=== PATIENT | male | born 1980 | race Caucasian/White ===

== ENCOUNTER 2018-07-29 23:40 | Emergency (ER) | payer MEDICAID ==
[~2018-07-29] VITALS: Ht 193 cm; Wt 86.7 kg
[2018-07-30] MEDS ORDERED: acetaminophen 325mg tablet PO ONE (00:20)
[2018-07-30] MEDS ORDERED: ibuprofen tablet 400 MG TABLET PO ONE (00:20)
--- NOTE | 2018-07-30 00:40 | NUR ---
post op shoe placed by johan heaton to right foot
[2018-07-30 00:41] VITALS: BP 107/64
== END 2018-07-30 00:43 | disposition home or self-care (01) ==
LOC: ER 23:41
DX: M79.675 Pain in left toe(s) (principal); W18.30XA Fall on same level, unspecified, initial encounter; Y93.42 Activity, yoga; Y92.89 Other specified places as the place of occurrence of the external cause; Y99.8 Other external cause status
CPT/HCPCS: 73630; 99283

== ENCOUNTER 2019-01-01 11:02 | Observation (INO) | payer MEDICAID ==
[~2019-01-01] VITALS: Ht 193 cm; Wt 94.0 kg
[2019-01-01 11:21] LABS: BASOPHILS # (AUTO) 0.1 X10'3 (0-0.2); BASOPHILS % (AUTO) 0.8 % (0-1); EOSINOPHILS % (AUTO) 0.6 % (0-6); HEMATOCRIT 40.2 % (42.0-52.0); HEMOGLOBIN 13.6 g/dl (14.0-17.9); LYMPHOCYTES # (AUTO) 1.5 X10'3 (1.1-4.8); LYMPHOCYTES % (AUTO) 21.4 % (21-51); MEAN CORPUSCULAR HEMOGLOBIN 29.3 PG (27.0-31.0); MEAN CORPUSCULAR HGB CONC 33.9 g/dL (33.0-36.5); MEAN CORPUSCULAR VOLUME 86.6 FL (78-98); MEAN PLATELET VOLUME 7.9 FL (7.4-10.4); MONOCYTES # (AUTO) 0.8 X10'3 (0-0.9); MONOCYTES % (AUTO) 10.8 % (2-12); NEUTROPHILS # (AUTO) 4.6 X10'3 (1.8-7.7); NEUTROPHILS % (AUTO) 66.4 % (42-75); PLATELET COUNT 249 X10'3 (140-440); RED BLOOD COUNT 4.65 X10'6 (4.70-6.10); RED CELL DISTRIBUTION WIDTH 13.8 % (11.5-14.5)
[2019-01-01 11:33] LABS: PARTIAL THROMBOPLASTIN TIME 26 SECONDS (22-32)
[2019-01-01 11:34] LABS: ALANINE AMINOTRANSFERASE 24 U/L (12-78); ALBUMIN/GLOBULIN RATIO 1.2 (1.1-1.5); ALKALINE PHOSPHATASE 79 IU/L (46-116); ANION GAP 12 (8-16); ASPARTATE AMINO TRANSFERASE 16 U/L (10-37); BILIRUBIN,TOTAL 0.4 MG/DL (0.1-1.0); BLOOD UREA NITROGEN 16 MG/DL (7-18); BUN/CREATININE RATIO 14.5 (5.4-32.0); CHLORIDE 104 MMOL/L (99-107); GLUCOSE 123 MG/DL (70-104); POTASSIUM 3.3 MMOL/L (3.5-5.1); SODIUM 138 MMOL/L (135-145); TOTAL PROTEIN 7.4 G/DL (6.4-8.2); eGFR 74 ML/MIN
[2019-01-01 11:39] LABS: TROPONIN I < 0.04 NG/ML (0.0-0.05)
[2019-01-01] MEDS ORDERED: BUPR200T PO (13:04)
[2019-01-01] MEDS ORDERED: LAMO200T PO (13:04)
[2019-01-01] MEDS ORDERED: magnesium 2GM in 50ml NS 50 ML IV PRN (13:10)
[2019-01-01] MEDS ORDERED: magnesium 4gm in 100ml NS 100 ML IV PRN (13:10)
[2019-01-01] MEDS ORDERED: magnesium hydroxide 30ml (MOM) UD suspension PO PRN (13:10)
[2019-01-01] MEDS ORDERED: mag hydrox/Alum hydrox/simeth 30ml oral suspension PO PRN (13:10)
[2019-01-01] MEDS ORDERED: potassium CL 10mEq/100ml bag 100 ML IV PRN ×2 (13:10)
[2019-01-01] MEDS ORDERED: ondansetron/PF 4mg/2ml inj IV PRN (13:10)
[2019-01-01] MEDS ORDERED: potassium Cl 20 mEq SR tablet PO PRN (13:10)
[2019-01-01] MEDS ORDERED: magnesium Cl slow-release 64mg tablet PO PRN (13:10)
[2019-01-01] MEDS ORDERED: acetaminophen 325mg tablet PO PRN ×2 (13:10)
[2019-01-01] MEDS ORDERED: aspirin 81mg tab.chew PO ONE (13:10)
[2019-01-01] MEDS: normal saline 1000ml 1,000 ML IV SCH ×2 (13:29→15:42)
--- NOTE | 2019-01-01 14:02 | NUR ---
Received report from Abraham GUPTA awaiting pt arrival to [facility] shortly
[2019-01-01 14:03] LABS: PHOSPHORUS 1.7 MG/DL (2.3-4.5)
[2019-01-01 16:01] VITALS: BP 108/55
[2019-01-01 16:33] LABS: MAGNESIUM 1.8 MG/DL (1.5-2.4)
[2019-01-01] MEDS: potassium Cl 20 mEq SR tablet PO PRN ×2 (17:25→21:21)
[2019-01-01] MEDS: Neutra Phos packet PO SCH ×2 (17:26→21:22)
[2019-01-01 18:00] VITALS: BP 106/55
[2019-01-01 18:01] LABS: CLARITY,URINE SLIGHTLY CLOUDY (Clear); COLOR,URINE YELLOW (Yellow); GLUCOSE, URINE NEGATIVE (Neg); KETONES,URINE NEGATIVE (Neg); LEUKOCYTE ESTERASE ,URINE NEGATIVE (Neg); NITRITES, URINE NEGATIVE (Neg); OCCULT BLOOD,URINE NEGATIVE (Neg); PH,URINE 5.5 (4.8-8.0); PROTEIN,URINE NEGATIVE (Neg); UROBILINOGEN,URINE 0.2 E.U/dL (0.2-1.0)
[2019-01-01 18:05] LABS: URINE AMPHETAMINE SCREEN NEGATIVE (Neg); URINE BARBITUATE SCREEN NEGATIVE (Neg); URINE BENZODIAZEPINES SCREEN NEGATIVE (Neg); URINE CANNABINOID SCREEN POSITIVE (Neg); URINE COCAINE SCREEN NEGATIVE (Neg); URINE METHADONE SCREEN NEGATIVE (Neg); URINE OPIATE SCREEN NEGATIVE (Neg); URINE PHENCYCLIDINE SCREEN NEGATIVE (Neg)
[2019-01-01 18:06] LABS: UA COLLECTION TYPE NON-SPECIFIED
[2019-01-01 18:07] LABS: MUCUS STRANDS MANY /LPF (Neg); SQUAMOUS EPITHELIAL CELL,UR FEW /LPF (FEW); TRANSITIONAL EPI CELLS,URINE FEW /HPF
[2019-01-01 18:08] LABS: BACTERIA,URINE NONE SEEN /HPF (Neg); RBC,URINE NONE SEEN /HPF (0-2); WBC,URINE 0-4 /HPF (0-4)
[2019-01-01 18:12] LABS: AMMONIUM BIURATE CRYSTALS 2+ /HPF (NEGATIVE)
--- NOTE | 2019-01-01 18:15 | NUR ---
Patient in room ORTHO 4021a. I have received report from CANDY SELLERS and had the opportunity to ask questions and assume patient care.
[2019-01-01] MEDS: lamoTRIgine 100mg tablet PO SCH (19:29)
[2019-01-01] MEDS: buPROPion SR 100mg tab PO SCH (19:29)
[2019-01-01] MEDS ORDERED: non-formulary drug (Lamotrigine 1 TAB) PO SCH (20:00)
[2019-01-01] MEDS ORDERED: BUPROPION HCL PO SCH (20:00)
[2019-01-01] MEDS ORDERED: Neutra Phos packet PO SCH (21:00)
[2019-01-01] MEDS ORDERED: temazepam 15mg capsule PO PRN (21:00)
[2019-01-01 21:51] VITALS: BP 112/45
[2019-01-02] MEDS: normal saline 1000ml 1,000 ML IV SCH (00:51)
[2019-01-02] MEDS: potassium Cl 20 mEq SR tablet PO PRN (00:52)
[2019-01-02 02:00] VITALS: BP 105/59
[2019-01-02 06:00] VITALS: BP 104/66
--- NOTE | 2019-01-02 06:19 | NUR ---
Problems reprioritized. Patient report given, questions answered & plan of care reviewed with CANDY SELLERS.
[2019-01-02 06:28] LABS: HEMATOCRIT 38.1 % (42.0-52.0); HEMOGLOBIN 12.5 g/dl (14.0-17.9); MEAN CORPUSCULAR HEMOGLOBIN 28.8 PG (27.0-31.0); MEAN CORPUSCULAR HGB CONC 32.8 g/dL (33.0-36.5); MEAN CORPUSCULAR VOLUME 87.7 FL (78-98); MEAN PLATELET VOLUME 8.2 FL (7.4-10.4); PLATELET COUNT 230 X10'3 (140-440); RED BLOOD COUNT 4.35 X10'6 (4.70-6.10); RED CELL DISTRIBUTION WIDTH 14.3 % (11.5-14.5); WHITE BLOOD COUNT 6.5 X10'3 (4.5-11.0)
[2019-01-02 06:51] LABS: ALBUMIN 3.4 G/DL (3.4-5.0); ANION GAP 9 (8-16); BLOOD UREA NITROGEN 14 MG/DL (7-18); BUN/CREATININE RATIO 15.9 (5.4-32.0); CALCIUM 8.1 MG/DL (8.5-10.1); CHLORIDE 109 MMOL/L (99-107); CHOL/HDL RATIO 5.8 (0.00-4.99); CHOLESTEROL 151 MG/DL (0-200); CREATININE 0.88 MG/DL (0.60-1.10); GLUCOSE 93 MG/DL (70-104); HDL CHOLESTEROL 26 MG/DL (35-60); LDL CHOLESTEROL 118 MG/DL (50-100); MAGNESIUM 1.9 MG/DL (1.5-2.4); POTASSIUM 4.6 MMOL/L (3.5-5.1); SODIUM 141 MMOL/L (135-145); TOTAL CARBON DIOXIDE 23.1 MMOL/L (24-32); TRIGLYCERIDES 65 MG/DL (20-135); eGFR > 90 ML/MIN
[2019-01-02] MEDS ORDERED: K and/or MAG REPLACEMENT MC SCH (08:00)
[2019-01-02] MEDS ORDERED: aspirin 81mg tablet.DR PO SCH (08:00)
[2019-01-02 08:12] LABS: PHOSPHORUS 3.6 MG/DL (2.3-4.5)
[2019-01-02] MEDS: lamoTRIgine 100mg tablet PO SCH (08:47)
[2019-01-02] MEDS: buPROPion SR 100mg tab PO SCH (08:47)
[2019-01-02] MEDS: Neutra Phos packet PO SCH (08:47)
--- NOTE | 2019-01-02 09:48 | NUR ---
Patient pushed call light and said his arms were shaking, they were a little shaky for a few seconds. He said his speech was slurred, it sounded somewhat slurred but resolved in a few seconds. Patient was totally alert. He pushed the call light 2 times over 5 minutes and had this episode.
--- NOTE | 2019-01-02 09:54 | NUR ---
Now patient is stating he is having chest pain on the left side dull and 5/5 pain. Doing EKG now. Vitals stable.
[2019-01-02 10:00] VITALS: BP 123/75
[2019-01-02] MEDS ORDERED: Neutra Phos packet PO PRN (12:35)
[2019-01-02] MEDS ORDERED: BUPR100T6 PO (13:08)
--- NOTE | 2019-01-02 13:42 | NUR ---
PAGER ID: [phone] MESSAGE: Estelle [phone] ben Leighann Kehinde VEGA he did annamaria down to 40's about 1130 or so. Currently 55-65 HR. Addendum: 01/03/19 at 1028 by Lisy Araujo RN Please disregard name in above note, wrong patient. The information about the pt's HR was correct per tele
== END 2019-01-02 14:45 | disposition home or self-care (01) ==
LOC: ER 11:02 → ORTHO 4S 13:51
PROVIDERS: ADMIT Family Medicine; ATTEND Family Medicine
DX: E87.6 Hypokalemia (principal); R00.1 Bradycardia, unspecified; E83.39 Other disorders of phosphorus metabolism; R11.0 Nausea; F31.9 Bipolar disorder, unspecified; F84.5 Asperger's syndrome; D64.9 Anemia, unspecified; E78.5 Hyperlipidemia, unspecified; F31.81 Bipolar II disorder; Z79.899 Other long term (current) drug therapy; Z86.73 Personal history of transient ischemic attack (TIA), and cerebral infarction without residual deficits
CPT/HCPCS: 36415; 70450; 70544; 70551; 71045; 80048; 80053; 80061; 80305; 81001; 82948; 83735; 84100; 84443; 84484; 85025; 85027; 85610; 85651; 85730; 87081; 93005; 93306; 93880; 97116; 97162; 97530; 99284; G0378; J7030

== ENCOUNTER 2019-01-03 20:53 | Emergency (ER) | payer MEDICAID ==
[~2019-01-03] VITALS: Ht 193 cm; Wt 91.4 kg
[~2019-01-03 20:53] MED LIST: BUPR100T6 PO
[2019-01-03 21:01] VITALS: BP 121/71
[2019-01-03] MEDS ORDERED: LORazepam 1 MG tablet PO ONE (21:15)
--- NOTE | 2019-01-03 21:36 | NUR ---
PT REPORTED THAT EARLIER TODAY HE FELT OFF, WAS STUTTERING, COULDN'T HOLD THINGS PROPERLY IN HIS HANDS. HE ASSOCIATES THESE SYMPTOMS WITH PREVIOUS SEIZURES, SO HE CAME TO THE ED.
== END 2019-01-03 21:49 | disposition home or self-care (01) ==
LOC: ER 20:53
DX: R56.9 Unspecified convulsions (principal); R41.0 Disorientation, unspecified; F80.81 Childhood onset fluency disorder; Z79.899 Other long term (current) drug therapy
CPT/HCPCS: 99284

== ENCOUNTER 2019-01-04 11:37 | Emergency (ER) | payer MEDICAID ==
[~2019-01-04] VITALS: Ht 193 cm; Wt 90.0 kg
[2019-01-04 12:13] VITALS: BP 119/72
[2019-01-04] MEDS ORDERED: LORazepam 1 MG tablet PO ONE (12:45)
[2019-01-04 14:28] LABS: URINE AMPHETAMINE SCREEN NEGATIVE (Neg); URINE BARBITUATE SCREEN NEGATIVE (Neg); URINE BENZODIAZEPINES SCREEN NEGATIVE (Neg); URINE CANNABINOID SCREEN POSITIVE (Neg); URINE COCAINE SCREEN NEGATIVE (Neg); URINE METHADONE SCREEN NEGATIVE (Neg); URINE OPIATE SCREEN NEGATIVE (Neg); URINE PHENCYCLIDINE SCREEN NEGATIVE (Neg)
== END 2019-01-04 14:25 | disposition home or self-care (01) ==
LOC: ER 11:38
DX: R25.1 Tremor, unspecified (principal); F41.9 Anxiety disorder, unspecified; F12.90 Cannabis use, unspecified, uncomplicated; Z88.6 Allergy status to analgesic agent; Z87.891 Personal history of nicotine dependence; Z79.899 Other long term (current) drug therapy
CPT/HCPCS: 80305; 82948; 93005; 99284

== ENCOUNTER 2019-01-04 21:32 | Emergency (ER) | payer MEDICAID ==
[~2019-01-04] VITALS: Ht 193 cm; Wt 91.4 kg
[2019-01-04 22:04] VITALS: BP 136/93
[2019-01-04] MEDS ORDERED: LORazepam 2 mg/ml vial IM ONE (22:25)
== END 2019-01-04 22:51 | disposition home or self-care (01) ==
LOC: ER 21:32
DX: F41.9 Anxiety disorder, unspecified (principal); F80.81 Childhood onset fluency disorder; F12.90 Cannabis use, unspecified, uncomplicated; Z86.69 Personal history of other diseases of the nervous system and sense organs; Z79.899 Other long term (current) drug therapy
CPT/HCPCS: 96372; 99284; J2060

== ENCOUNTER 2019-07-15 22:58 | Emergency (ER) | payer MEDICAID ==
[~2019-07-15] VITALS: Ht 190.5 cm; Wt 100.0 kg
--- NOTE | 2019-07-16 00:08 | NUR ---
PATIENT STATES " I DID NOT HAVE A SEIZURE BUT I FEEL LIKE I MIGHT BE GETTING ONE." DUE TO THIS SUBJECTIVE DATA THERE WAS NO SEIZURE ASSESSMENT TO ASSESS
[2019-07-16 00:10] VITALS: BP 98/62
== END 2019-07-16 00:49 | disposition home or self-care (01) ==
LOC: ER 22:59
DX: R56.9 Unspecified convulsions (principal); H53.8 Other visual disturbances; F12.90 Cannabis use, unspecified, uncomplicated; F10.99 Alcohol use, unspecified with unspecified alcohol-induced disorder; Z79.899 Other long term (current) drug therapy; Y90.9 Presence of alcohol in blood, level not specified
CPT/HCPCS: 99281

== ENCOUNTER 2019-08-06 21:07 | Emergency (ER) | payer MEDICAID ==
[~2019-08-06] VITALS: Ht 190.5 cm; Wt 89.0 kg
[2019-08-06 21:50] LABS: BASOPHILS % (AUTO) 0.6 % (0-1); EOSINOPHILS % (AUTO) 0.5 % (0-6); HEMATOCRIT 41.3 % (42.0-52.0); LYMPHOCYTES # (AUTO) 2.2 X10'3 (1.1-4.8); MEAN CORPUSCULAR HEMOGLOBIN 29.2 PG (27.0-31.0); MEAN CORPUSCULAR HGB CONC 33.9 g/dL (33.0-36.5); MEAN PLATELET VOLUME 7.9 FL (7.4-10.4); MONOCYTES # (AUTO) 0.6 X10'3 (0-0.9); MONOCYTES % (AUTO) 8.4 % (2-12); NEUTROPHILS % (AUTO) 58.5 % (42-75); PLATELET COUNT 296 X10'3 (140-440); RED CELL DISTRIBUTION WIDTH 13.7 % (11.5-14.5); WHITE BLOOD COUNT 6.8 X10'3 (4.5-11.0)
--- NOTE | 2019-08-06 21:50 | NUR ---
weak and no appetite. States he has lost 20 pounds in 3 weeks. No cough, lungs clear.
--- NOTE | 2019-08-06 21:54 | NUR ---
he said he has been told before his heart rate is slow, 70s. Informed him its 47
--- NOTE | 2019-08-06 21:58 | NUR ---
informed of HR, instructed to do orthostatics
[2019-08-06 21:59] LABS: ALANINE AMINOTRANSFERASE 22 U/L (12-78); ALBUMIN 4.4 G/DL (3.4-5.0); ALBUMIN/GLOBULIN RATIO 1.6 (1.1-1.5); ALKALINE PHOSPHATASE 77 IU/L (46-116); ANION GAP 9 (8-16); ASPARTATE AMINO TRANSFERASE 22 U/L (10-37); BILIRUBIN,TOTAL 0.3 MG/DL (0.1-1.0); BLOOD UREA NITROGEN 13 MG/DL (7-18); BUN/CREATININE RATIO 13.4 (5.4-32.0); CALCIUM 8.9 MG/DL (8.5-10.1); CHLORIDE 108 MMOL/L (99-107); CREATININE 0.97 MG/DL (0.60-1.10); GLUCOSE 89 MG/DL (70-104); POTASSIUM 3.5 MMOL/L (3.5-5.1); SODIUM 141 MMOL/L (135-145); TOTAL CARBON DIOXIDE 23.8 MMOL/L (24-32); TOTAL PROTEIN 7.1 G/DL (6.4-8.2); eGFR 86 ML/MIN
[2019-08-06] MEDS ORDERED: NAPR-56 PO (22:40)
[2019-08-06] MEDS ORDERED: naproxen 500mg tablet PO ONE (22:40)
[2019-08-06 23:07] VITALS: BP 115/88
--- NOTE | 2019-08-06 23:10 | NUR ---
VISITED WITH THE MD ABOUT HIS HEARTRATE BEING LOW. HE SAID HE IS FINE TO DISCHARGE.
== END 2019-08-06 23:10 | disposition home or self-care (01) ==
LOC: ER 21:07
DX: R07.89 Other chest pain (principal); R06.02 Shortness of breath; R53.1 Weakness; R51 Headache; F12.90 Cannabis use, unspecified, uncomplicated; Z86.69 Personal history of other diseases of the nervous system and sense organs; Z72.89 Other problems related to lifestyle; Z79.899 Other long term (current) drug therapy; Z87.891 Personal history of nicotine dependence
CPT/HCPCS: 36415; 71045; 80053; 84484; 85025; 93005; 99285

== ENCOUNTER 2019-10-23 15:17 | Emergency (ER) | payer MEDICAID ==
[~2019-10-23] VITALS: Ht 190.5 cm; Wt 95.0 kg
[2019-10-23 17:23] VITALS: BP 115/70
== END 2019-10-23 17:26 | disposition home or self-care (01) ==
LOC: ER 15:17
DX: R53.81 Other malaise (principal); R06.02 Shortness of breath; R07.89 Other chest pain; R42 Dizziness and giddiness; R53.83 Other fatigue; F41.9 Anxiety disorder, unspecified; F31.9 Bipolar disorder, unspecified; F12.90 Cannabis use, unspecified, uncomplicated; Z87.891 Personal history of nicotine dependence; Z86.69 Personal history of other diseases of the nervous system and sense organs; Z79.899 Other long term (current) drug therapy
CPT/HCPCS: 93005; 99283

== ENCOUNTER 2019-10-31 11:57 | Emergency (ER) | payer MEDICAID ==
[~2019-10-31] VITALS: Ht 190.5 cm; Wt 94.5 kg
[2019-10-31 13:43] LABS: BASOPHILS % (AUTO) 0.3 % (0-1); EOSINOPHILS % (AUTO) 0.2 % (0-6); HEMATOCRIT 41.6 % (42.0-52.0); LYMPHOCYTES # (AUTO) 1.2 X10'3 (1.1-4.8); LYMPHOCYTES % (AUTO) 12.4 % (21-51); MEAN CORPUSCULAR HEMOGLOBIN 29.5 PG (27.0-31.0); MEAN CORPUSCULAR HGB CONC 33.6 g/dL (33.0-36.5); MEAN CORPUSCULAR VOLUME 87.7 FL (78-98); MEAN PLATELET VOLUME 7.7 FL (7.4-10.4); MONOCYTES # (AUTO) 0.7 X10'3 (0-0.9); MONOCYTES % (AUTO) 6.9 % (2-12); NEUTROPHILS # (AUTO) 8.1 X10'3 (1.8-7.7); NEUTROPHILS % (AUTO) 80.2 % (42-75); PLATELET COUNT 294 X10'3 (140-440); RED BLOOD COUNT 4.74 X10'6 (4.70-6.10); RED CELL DISTRIBUTION WIDTH 14.1 % (11.5-14.5)
[2019-10-31 13:58] LABS: ALANINE AMINOTRANSFERASE 22 U/L (12-78); ALBUMIN/GLOBULIN RATIO 1.2 (1.1-1.5); ALKALINE PHOSPHATASE 78 IU/L (46-116); ANION GAP 4 (8-16); ASPARTATE AMINO TRANSFERASE 16 U/L (10-37); BILIRUBIN,TOTAL 0.4 MG/DL (0.1-1.0); BLOOD UREA NITROGEN 10 MG/DL (7-18); BUN/CREATININE RATIO 10.3 (5.4-32.0); CALCIUM 9.1 MG/DL (8.5-10.1); CHLORIDE 104 MMOL/L (99-107); CREATININE 0.97 MG/DL (0.60-1.10); GLUCOSE 100 MG/DL (70-104); POTASSIUM 3.4 MMOL/L (3.5-5.1); SODIUM 139 MMOL/L (135-145); TOTAL CARBON DIOXIDE 30.8 MMOL/L (24-32); TOTAL PROTEIN 7.4 G/DL (6.4-8.2); eGFR 85 ML/MIN
[2019-10-31 14:01] LABS: LIPASE 116 U/L (73-393)
[2019-10-31 14:13] VITALS: BP 137/84
== END 2019-10-31 14:15 | disposition home or self-care (01) ==
LOC: ER 11:57
DX: R10.13 Epigastric pain (principal); F41.9 Anxiety disorder, unspecified; R11.2 Nausea with vomiting, unspecified; F31.9 Bipolar disorder, unspecified; F17.200 Nicotine dependence, unspecified, uncomplicated; F12.90 Cannabis use, unspecified, uncomplicated; Z72.89 Other problems related to lifestyle; Z86.69 Personal history of other diseases of the nervous system and sense organs; Z79.899 Other long term (current) drug therapy
CPT/HCPCS: 36415; 80053; 83690; 84484; 85025; 93005; 99285

== ENCOUNTER 2020-12-21 18:47 | Emergency (ER) | payer MEDICAID ==
[~2020-12-21] VITALS: Ht 190.5 cm; Wt 124.6 kg
[2020-12-21] MEDS ORDERED: AMOX500C2 PO (20:40)
--- NOTE | 2020-12-21 20:54 | NUR ---
Seen by provider, disch home with Rx. No distress.
[2020-12-21 20:55] VITALS: BP 138/78
== END 2020-12-21 20:57 | disposition home or self-care (01) ==
LOC: ER 18:48
DX: H66.91 Otitis media, unspecified, right ear (principal); H92.01 Otalgia, right ear; F41.9 Anxiety disorder, unspecified; F31.9 Bipolar disorder, unspecified; F12.90 Cannabis use, unspecified, uncomplicated; Z72.89 Other problems related to lifestyle; Z86.69 Personal history of other diseases of the nervous system and sense organs; Z79.2 Long term (current) use of antibiotics; Z79.899 Other long term (current) drug therapy
CPT/HCPCS: 99283

== ENCOUNTER 2020-12-24 11:11 | Emergency (ER) | payer MEDICAID ==
[~2020-12-24] VITALS: Ht 190.5 cm; Wt 116.4 kg
[~2020-12-24 11:11] MED LIST changes: +AMOX500C2 PO
[2020-12-24 11:48] LABS: BASOPHILS % (AUTO) 0.4 % (0-1); EOSINOPHILS % (AUTO) 0.4 % (0-6); HEMATOCRIT 41.4 % (42.0-52.0); LYMPHOCYTES # (AUTO) 1.7 X10'3 (1.1-4.8); LYMPHOCYTES % (AUTO) 17.5 % (21-51); MEAN CORPUSCULAR HEMOGLOBIN 29.3 PG (27.0-31.0); MEAN CORPUSCULAR HGB CONC 33.9 g/dL (33.0-36.5); MEAN CORPUSCULAR VOLUME 86.7 FL (78-98); MEAN PLATELET VOLUME 7.4 FL (7.4-10.4); MONOCYTES # (AUTO) 0.7 X10'3 (0-0.9); MONOCYTES % (AUTO) 7.2 % (2-12); NEUTROPHILS # (AUTO) 7.4 X10'3 (1.8-7.7); NEUTROPHILS % (AUTO) 74.5 % (42-75); PLATELET COUNT 371 X10'3 (140-440); RED BLOOD COUNT 4.78 X10'6 (4.70-6.10); RED CELL DISTRIBUTION WIDTH 14.4 % (11.5-14.5); WHITE BLOOD COUNT 9.9 X10'3 (4.5-11.0)
[2020-12-24 11:57] LABS: ALANINE AMINOTRANSFERASE 31 U/L (12-78); ALBUMIN 3.9 G/DL (3.4-5.0); ALKALINE PHOSPHATASE 103 IU/L (46-116); ANION GAP 9 (8-16); ASPARTATE AMINO TRANSFERASE 24 U/L (10-37); BILIRUBIN,TOTAL 0.2 MG/DL (0.1-1.0); BLOOD UREA NITROGEN 21 MG/DL (7-18); BUN/CREATININE RATIO 25.6 (5.4-32.0); CALCIUM 8.8 MG/DL (8.5-10.1); CHLORIDE 103 MMOL/L (99-107); CREATININE 0.82 MG/DL (0.60-1.10); GLUCOSE 115 MG/DL (70-104); POTASSIUM 3.6 MMOL/L (3.5-5.1); SODIUM 138 MMOL/L (135-145); TOTAL CARBON DIOXIDE 25.7 MMOL/L (24-32); TOTAL PROTEIN 7.8 G/DL (6.4-8.2); eGFR > 90 ML/MIN
--- NOTE | 2020-12-24 13:55 | NUR ---
awaiting for 3 hour troponin.
[2020-12-24 15:31] VITALS: BP 138/72
== END 2020-12-24 15:35 | disposition home or self-care (01) ==
LOC: ER 11:12
DX: R07.81 Pleurodynia (principal); F41.9 Anxiety disorder, unspecified; F20.9 Schizophrenia, unspecified; F12.10 Cannabis abuse, uncomplicated
CPT/HCPCS: 36415; 71045; 80053; 83880; 84484; 85025; 93005; 99285

== ENCOUNTER 2021-12-28 08:15 | Emergency (ER) | payer MEDICAID ==
[~2021-12-28] VITALS: Ht 190.5 cm; Wt 112.0 kg
[~2021-12-28 08:15] MED LIST changes: -AMOX500C2 PO; +BUPR-113 PO; -BUPR100T6 PO
[2021-12-28 08:53] VITALS: BP 133/97
[2021-12-28] MEDS ORDERED: LIDOcaine 1% 30ml preserv. free vial IJ STA (11:32)
== END 2021-12-28 13:33 | disposition home or self-care (01) ==
LOC: ER 08:15
DX: S01.81XA Laceration without foreign body of other part of head, initial encounter (principal); F31.9 Bipolar disorder, unspecified; F12.90 Cannabis use, unspecified, uncomplicated; Z87.891 Personal history of nicotine dependence; W06.XXXA Fall from bed, initial encounter; Y93.89 Activity, other specified; Y92.89 Other specified places as the place of occurrence of the external cause; Y99.8 Other external cause status
CPT/HCPCS: 12011; 99282; A6449

== ENCOUNTER 2022-05-18 17:32 | Inpatient (IN) | payer MEDICAID ==
[~2022-05-18] VITALS: Ht 190.5 cm; Wt 118.2 kg
[2022-05-18 18:42] LABS: BASOPHILS % (AUTO) 0.1 % (0-1); EOSINOPHILS % (AUTO) 0 % (0-6); HEMATOCRIT 45.4 % (42.0-52.0); HEMOGLOBIN 14.8 g/dl (14.0-17.9); LYMPHOCYTES # (AUTO) 0.6 X10'3 (1.1-4.8); LYMPHOCYTES % (AUTO) 3.1 % (21-51); MEAN CORPUSCULAR HGB CONC 32.7 g/dL (33.0-36.5); MEAN CORPUSCULAR VOLUME 85.8 FL (78-98); MEAN PLATELET VOLUME 7.4 FL (7.4-10.4); MONOCYTES # (AUTO) 0.7 X10'3 (0-0.9); MONOCYTES % (AUTO) 3.3 % (2-12); NEUTROPHILS # (AUTO) 18.6 X10'3 (1.8-7.7); NEUTROPHILS % (AUTO) 93.5 % (42-75); PLATELET COUNT 423 X10'3 (140-440); RED BLOOD COUNT 5.29 X10'6 (4.70-6.10); RED CELL DISTRIBUTION WIDTH 15.3 % (11.5-14.5); WHITE BLOOD COUNT 19.9 X10'3 (4.5-11.0)
[2022-05-18 18:58] LABS: ALANINE AMINOTRANSFERASE 348 U/L (12-78); ALBUMIN 4.4 G/DL (3.4-5.0); ALBUMIN/GLOBULIN RATIO 1.2 (1.1-1.5); ALKALINE PHOSPHATASE 242 IU/L (46-116); ANION GAP 12 (8-16); ASPARTATE AMINO TRANSFERASE 247 U/L (10-37); BILIRUBIN,TOTAL 3.3 MG/DL (0.1-1.0); BLOOD UREA NITROGEN 9 MG/DL (7-18); BUN/CREATININE RATIO 10.6 (5.4-32.0); CALCIUM 9.2 MG/DL (8.5-10.1); CHLORIDE 100 MMOL/L (99-107); CREATININE 0.85 MG/DL (0.60-1.10); GLUCOSE 178 MG/DL (70-104); POTASSIUM 3.9 MMOL/L (3.5-5.1); SODIUM 136 MMOL/L (135-145); TOTAL CARBON DIOXIDE 24.3 MMOL/L (24-32); eGFR > 90 ML/MIN
[2022-05-18 19:41] LABS: LIPASE 14464 U/L (73-393)
[2022-05-18 19:43] LABS: CLARITY,URINE CLEAR (Clear); GLUCOSE, URINE 100 mg/dl (Neg); KETONES,URINE 15 mg/dl (Neg); LEUKOCYTE ESTERASE ,URINE NEGATIVE (Neg); NITRITES, URINE NEGATIVE (Neg); OCCULT BLOOD,URINE TRACE-INTACT (Neg); PROTEIN,URINE 30 mg/dl (Neg)
[2022-05-18 19:55] LABS: COLOR,URINE AMBER (Yellow); UA COLLECTION TYPE CLN CATCH MIDSTREAM
[2022-05-18 20:11] LABS: RBC,URINE 0-2 /HPF (0-2); WBC,URINE 0-4 /HPF (0-4)
[2022-05-18 20:12] LABS: BACTERIA,URINE NONE SEEN /HPF (Neg); HYALINE CASTS 0-3 /LPF (NEGATIVE); MUCUS STRANDS MANY /LPF (Neg); SQUAMOUS EPITHELIAL CELL,UR FEW /LPF (FEW)
[2022-05-18] MEDS ORDERED: ondansetron/PF 4mg/2ml inj IV ONE (20:45)
[2022-05-18] MEDS ORDERED: normal saline 1000ML IV soln IVB ONE (20:45)
[2022-05-18] MEDS ORDERED: temazepam 15mg capsule PO PRN (21:00)
[2022-05-18] MEDS ORDERED: piperacillin/tazo 3.375gm/50ml 50 ML IV ONE (21:50)
[2022-05-18] MEDS: morphine 4 MG/ML inj SYRINge IV PRN ×2 (21:54→22:13)
[2022-05-18] MEDS ORDERED: metoclopramide 5 mg/ml inj IV PRN (22:15)
[2022-05-18] MEDS ORDERED: potassium Cl 20 mEq SR tablet PO PRN ×2 (22:15)
[2022-05-18] MEDS: normal saline 1000ml 1,000 ML IV SCH (22:15)
[2022-05-18] MEDS ORDERED: mag hydrox/Alum hydrox/simeth 30ml oral suspension PO PRN (22:15)
[2022-05-18] MEDS ORDERED: HYDROcodone/acetaminophen 5mg/325mg tablet PO PRN (22:15)
[2022-05-18] MEDS ORDERED: potassium Cl 40MEQ/1/2NS 520ml 520 ML IV PRN (22:15)
[2022-05-18] MEDS ORDERED: magnesium 4gm in 100ml NS 100 ML IV PRN (22:15)
[2022-05-18] MEDS ORDERED: ondansetron/PF 4mg/2ml inj IV PRN (22:15)
[2022-05-18] MEDS ORDERED: acetaminophen 325mg tablet PO PRN (22:15)
[2022-05-18] MEDS ORDERED: morphine 2 MG/ML inj. syringe IV PRN (22:15)
[2022-05-18] MEDS ORDERED: magnesium Cl slow-release 64mg tablet PO PRN (22:15)
[2022-05-18] MEDS ORDERED: iohexol 300mg/ml 100ml inj. ONE (22:41)
[2022-05-18 23:57] LABS: URINE AMPHETAMINE SCREEN NEGATIVE (Neg); URINE BARBITUATE SCREEN NEGATIVE (Neg); URINE BENZODIAZEPINES SCREEN NEGATIVE (Neg); URINE CANNABINOID SCREEN NEGATIVE (Neg); URINE COCAINE SCREEN NEGATIVE (Neg); URINE METHADONE SCREEN NEGATIVE (Neg); URINE OPIATE SCREEN NEGATIVE (Neg); URINE PHENCYCLIDINE SCREEN NEGATIVE (Neg)
[2022-05-19] MEDS: atenolol 25mg tablet PO SCH ×2 (00:44→08:47)
[2022-05-19] MEDS: morphine 2 MG/ML inj. syringe IV PRN ×5 (00:47→22:04)
[2022-05-19 02:40] VITALS: BP 172/114
--- NOTE | 2022-05-19 02:45 | NUR ---
pt in room 360 Brando Mabry admitted pt to room and darting done. pt oriented to room and routine. Addendum: 05/19/22 at 0308 by Carolina Nixon RN Amended: Links added.
[2022-05-19] MEDS ORDERED: FLU VACC QS2022-23(6MOS UP)/PF 60 MCG/0.5 ML SYRINGE IMVAC ONE ×2 (02:55→08:00)
[2022-05-19 02:56] VITALS: BP 157/96
[2022-05-19] MEDS: HYDROcodone/acetaminophen 10/325mg tab PO PRN ×3 (03:04→19:38)
--- NOTE | 2022-05-19 03:05 | NUR ---
Dundas given for pain, morphine not due at this time. pt very painful. notified in Er not addition medications ordered. Morphine was not increased and per report Dr. bills declined to order dilauded. Addendum: 05/19/22 at 0307 by Carolina Nixon RN Amended: Links added.
--- NOTE | 2022-05-19 03:13 | NUR ---
pt does not want vaccine at this time d/t pain. Addendum: 05/19/22 at 0313 by Carolina Nixon RN Amended: Links added.
--- NOTE | 2022-05-19 03:30 | NUR ---
amb to bathroom Addendum: 05/19/22 at 0445 by Carolina Nixon RN Amended: Links added.
--- NOTE | 2022-05-19 04:30 | NUR ---
sleeping rr wnl no s&s of pain. Addendum: 05/19/22 at 0445 by Carolina Nixon RN Amended: Links added.
[2022-05-19] MEDS: piperacillin/tazo 3.375gm/50ml 50 ML IV SCH ×3 (05:37→21:33)
--- NOTE | 2022-05-19 06:29 | NUR ---
Problems reprioritized. Patient report given, questions answered & plan of care reviewed with CANDY Manuel. Addendum: 05/19/22 at 0630 by Carolina Nixon RN Amended: Links added.
[2022-05-19 06:30] LABS: BASOPHILS % (AUTO) 0.1 % (0-1); EOSINOPHILS % (AUTO) 0 % (0-6); HEMATOCRIT 44.3 % (42.0-52.0); HEMOGLOBIN 14.9 g/dl (14.0-17.9); LYMPHOCYTES # (AUTO) 0.9 X10'3 (1.1-4.8); MEAN CORPUSCULAR HEMOGLOBIN 28.7 PG (27.0-31.0); MEAN CORPUSCULAR HGB CONC 33.6 g/dL (33.0-36.5); MEAN CORPUSCULAR VOLUME 85.3 FL (78-98); MONOCYTES # (AUTO) 1.3 X10'3 (0-0.9); MONOCYTES % (AUTO) 5.6 % (2-12); NEUTROPHILS # (AUTO) 20.7 X10'3 (1.8-7.7); NEUTROPHILS % (AUTO) 90.3 % (42-75); PLATELET COUNT 398 X10'3 (140-440); RED BLOOD COUNT 5.19 X10'6 (4.70-6.10); WHITE BLOOD COUNT 22.9 X10'3 (4.5-11.0)
[2022-05-19 06:47] VITALS: BP 165/108
--- NOTE | 2022-05-19 07:02 | NUR ---
Patient in room DORIAN 360. I have received report from Lou GUPTA and had the opportunity to ask questions and assume patient care.
[2022-05-19 07:21] LABS: ALANINE AMINOTRANSFERASE 323 U/L (12-78); ALBUMIN 3.7 G/DL (3.4-5.0); ALBUMIN/GLOBULIN RATIO 1.1 (1.1-1.5); ALKALINE PHOSPHATASE 266 IU/L (46-116); ASPARTATE AMINO TRANSFERASE 245 U/L (10-37); BILIRUBIN,TOTAL 3.3 MG/DL (0.1-1.0); BLOOD UREA NITROGEN 10 MG/DL (7-18); BUN/CREATININE RATIO 13.7 (5.4-32.0); CALCIUM 8.6 MG/DL (8.5-10.1); CREATININE 0.73 MG/DL (0.60-1.10); GLUCOSE 115 MG/DL (70-104); PLATELET ESTIMATE NORMAL; TOTAL CARBON DIOXIDE 24.5 MMOL/L (24-32); TOTAL CELLS COUNTED 100; TOTAL PROTEIN 7.1 G/DL (6.4-8.2); eGFR > 90 ML/MIN
[2022-05-19 07:22] LABS: ANISOCYTOSIS 1+; MICROCYTOSIS 1+
[2022-05-19 07:47] LABS: ANION GAP 13 (8-16); CHLORIDE 101 MMOL/L (99-107); POTASSIUM 4.1 MMOL/L (3.5-5.1); SODIUM 138 MMOL/L (135-145)
[2022-05-19 07:51] LABS: LIPASE 6955 U/L (73-393)
[2022-05-19] MEDS: heparin, porcine 5000 units/ml vial SQ SCH ×2 (08:00→19:38)
[2022-05-19] MEDS: K and/or MAG REPLACEMENT MC SCH ×2 (08:00→18:58)
[2022-05-19] MEDS: pantoprazole 40mg Tablet.DR PO SCH (08:46)
[2022-05-19] MEDS ORDERED: OMEP20CA16 PO (09:11)
[2022-05-19] MEDS ORDERED: LAMO150T6 PO (09:11)
[2022-05-19] MEDS ORDERED: CLON1TAB13 PO (09:11)
--- NOTE | 2022-05-19 09:50 | NUR ---
Paged placed to signal technician re: MRCP ordered. Rtn call pending.
[2022-05-19 11:31] VITALS: BP 116/74
[2022-05-19] MEDS: normal saline 1000ml 1,000 ML IV SCH ×2 (11:49→18:15)
[2022-05-19] MEDS ORDERED: clonazePAM 1mg tablet PO PRN (12:20)
[2022-05-19] MEDS: lamoTRIgine 25mg tablet PO SCH (13:24)
[2022-05-19] MEDS: lamoTRIgine 100mg tablet PO SCH (13:24)
[2022-05-19 18:00] VITALS: BP 107/85
--- NOTE | 2022-05-19 18:28 | NUR ---
Problems reprioritized. Patient report given, questions answered & plan of care reviewed with Clotilde GUPTA.
--- NOTE | 2022-05-19 19:43 | NUR ---
DR. BELL ORDERED HIDA IN AM. HE TALKED TO PT OKAY FOR SOME ICE CHIPS AND SIPS.
[2022-05-19 22:00] VITALS: BP 103/67
[2022-05-20] MEDS: normal saline 1000ml 1,000 ML IV SCH ×4 (00:59→22:23)
[2022-05-20] MEDS: HYDROcodone/acetaminophen 10/325mg tab PO PRN ×4 (01:58→22:18)
[2022-05-20] MEDS: piperacillin/tazo 3.375gm/50ml 50 ML IV SCH ×3 (05:26→22:18)
[2022-05-20 05:57] LABS: BASOPHILS # (AUTO) 0.1 X10'3 (0-0.2); BASOPHILS % (AUTO) 0.2 % (0-1); EOSINOPHILS % (AUTO) 0 % (0-6); HEMATOCRIT 42.8 % (42.0-52.0); HEMOGLOBIN 14.3 g/dl (14.0-17.9); LYMPHOCYTES # (AUTO) 1.2 X10'3 (1.1-4.8); LYMPHOCYTES % (AUTO) 4.1 % (21-51); MEAN CORPUSCULAR HEMOGLOBIN 28.6 PG (27.0-31.0); MEAN CORPUSCULAR HGB CONC 33.4 g/dL (33.0-36.5); MEAN CORPUSCULAR VOLUME 85.6 FL (78-98); MEAN PLATELET VOLUME 7.8 FL (7.4-10.4); MONOCYTES # (AUTO) 1.6 X10'3 (0-0.9); MONOCYTES % (AUTO) 5.3 % (2-12); NEUTROPHILS % (AUTO) 90.4 % (42-75); PLATELET COUNT 322 X10'3 (140-440); RED CELL DISTRIBUTION WIDTH 15.6 % (11.5-14.5)
[2022-05-20 06:02] LABS: WHITE BLOOD COUNT 29.9 X10'3 (4.5-11.0)
--- NOTE | 2022-05-20 06:15 | NUR ---
Problems reprioritized. Patient report given, questions answered & plan of care reviewed with CANDY Manuel.
--- NOTE | 2022-05-20 06:25 | NUR ---
PAGER ID: [phone] MESSAGE: Kaleb surg [phone] re:360a Radha Bass critical WBC of 29.9 on Zosyn only.
[2022-05-20 06:37] LABS: ALANINE AMINOTRANSFERASE 203 U/L (12-78); ALBUMIN 2.9 G/DL (3.4-5.0); ALBUMIN/GLOBULIN RATIO 0.8 (1.1-1.5); ALKALINE PHOSPHATASE 237 IU/L (46-116); ASPARTATE AMINO TRANSFERASE 96 U/L (10-37); BILIRUBIN,TOTAL 2.7 MG/DL (0.1-1.0); BLOOD UREA NITROGEN 15 MG/DL (7-18); BUN/CREATININE RATIO 16.7 (5.4-32.0); CALCIUM 7.5 MG/DL (8.5-10.1); GLUCOSE 114 MG/DL (70-104); TOTAL CARBON DIOXIDE 26.6 MMOL/L (24-32); TOTAL PROTEIN 6.5 G/DL (6.4-8.2); eGFR > 90 ML/MIN
[2022-05-20 06:42] LABS: TOTAL CELLS COUNTED 100
[2022-05-20 06:43] LABS: ANISOCYTOSIS 1+; MICROCYTOSIS 1+; PLATELET ESTIMATE NORMAL
--- NOTE | 2022-05-20 06:50 | NUR ---
Patient in room DORIAN 360. I have received report from Clotilde GUPTA and had the opportunity to ask questions and assume patient care.
[2022-05-20 07:14] VITALS: BP 110/65
[2022-05-20 07:31] LABS: ANION GAP 9 (8-16); CHLORIDE 101 MMOL/L (99-107); POTASSIUM 3.9 MMOL/L (3.5-5.1); SODIUM 137 MMOL/L (135-145)
--- NOTE | 2022-05-20 07:42 | NUR ---
PAGER ID: [phone] MESSAGE: Kaleb Surg Re: 360a Radha Nina Nuclear Med is not able to get dose for HIDA scan today. Can I start treating with pain medications again. Thanks Kaleb.
[2022-05-20] MEDS ORDERED: non-formulary drug (Omeprazole 1 CAP) PO SCH (08:00)
[2022-05-20] MEDS: K and/or MAG REPLACEMENT MC SCH ×2 (08:00→20:00)
[2022-05-20] MEDS: heparin, porcine 5000 units/ml vial SQ SCH ×2 (08:00→20:21)
[2022-05-20] MEDS: morphine 2 MG/ML inj. syringe IV PRN ×3 (09:10→20:21)
[2022-05-20 09:30] LABS: LIPASE 2399 U/L (73-393)
[2022-05-20] MEDS ORDERED: morphine 2 MG/ML inj. syringe IV ONE (10:05)
[2022-05-20] MEDS: vancomycin/NS 1 GM ADD-VANTAGE 250 ML IV SCH ×2 (10:28→17:27)
[2022-05-20] MEDS ORDERED: iohexol 300mg/ml 100ml inj. ONE (10:48)
[2022-05-20 11:10] VITALS: BP 121/78
[2022-05-20] MEDS: lamoTRIgine 100mg tablet PO SCH (11:50)
[2022-05-20] MEDS: lamoTRIgine 25mg tablet PO SCH (11:50)
[2022-05-20] MEDS: pantoprazole 40mg Tablet.DR PO SCH (11:51)
[2022-05-20] MEDS: buPROPion SR 100mg tab PO SCH (11:51)
[2022-05-20] MEDS: atenolol 25mg tablet PO SCH (11:54)
--- NOTE | 2022-05-20 14:30 | NUR ---
relieving RN for break, pt is lying on bed, eating ice chips, zina well no n/v
[2022-05-20] MEDS ORDERED: FLU VACC QS2022-23(6MOS UP)/PF 60 MCG/0.5 ML SYRINGE IMVAC ONE (15:00)
[2022-05-20 18:00] VITALS: BP 119/63
--- NOTE | 2022-05-20 19:08 | NUR ---
Problems reprioritized. Patient report given, questions answered & plan of care reviewed with Patty GUPTA.
[2022-05-20 20:19] VITALS: BP 149/100
[2022-05-20 22:00] VITALS: BP 140/79
[2022-05-21] VITALS (18 sets, daily range): BP systolic 115–154; BP diastolic 63–95
[2022-05-21] MEDS: morphine 2 MG/ML inj. syringe IV PRN ×3 (00:18→16:02)
[2022-05-21] MEDS: HYDROcodone/acetaminophen 10/325mg tab PO PRN ×3 (02:32→17:50)
[2022-05-21] MEDS: vancomycin/NS 1 GM ADD-VANTAGE 250 ML IV SCH ×2 (02:33→08:09)
--- NOTE | 2022-05-21 06:35 | NUR ---
Problems reprioritized. Patient report given, questions answered & plan of care reviewed with CANDY DÍAZ.
[2022-05-21] MEDS ORDERED: VANCOMYCIN LEVEL IV ONE (07:30)
--- NOTE | 2022-05-21 07:33 | NUR ---
Patient in room DORIAN 360. I have received report from STEFFI GUPTA and had the opportunity to ask questions and assume patient care.
[2022-05-21] MEDS: heparin, porcine 5000 units/ml vial SQ SCH ×2 (08:00→23:28)
[2022-05-21] MEDS: K and/or MAG REPLACEMENT MC SCH ×2 (08:00→20:00)
[2022-05-21] MEDS: normal saline 1000ml 1,000 ML IV SCH ×3 (08:16→22:12)
[2022-05-21] MEDS: pantoprazole 40mg Tablet.DR PO SCH (08:18)
[2022-05-21] MEDS: lamoTRIgine 100mg tablet PO SCH (08:19)
[2022-05-21] MEDS: lamoTRIgine 25mg tablet PO SCH (08:20)
[2022-05-21] MEDS: atenolol 25mg tablet PO SCH (08:21)
[2022-05-21] MEDS: buPROPion SR 100mg tab PO SCH (08:21)
[2022-05-21] MEDS: acetaminophen 325mg tablet PO PRN ×3 (08:23→21:25)
[2022-05-21 09:01] LABS: BASOPHILS % (AUTO) 0 % (0-1); EOSINOPHILS % (AUTO) 0.1 % (0-6); HEMATOCRIT 35.3 % (42.0-52.0); HEMOGLOBIN 11.6 g/dl (14.0-17.9); LYMPHOCYTES % (AUTO) 4.7 % (21-51); MEAN CORPUSCULAR HEMOGLOBIN 28.2 PG (27.0-31.0); MEAN CORPUSCULAR HGB CONC 32.9 g/dL (33.0-36.5); MEAN CORPUSCULAR VOLUME 85.6 FL (78-98); MEAN PLATELET VOLUME 7.8 FL (7.4-10.4); MONOCYTES # (AUTO) 1.3 X10'3 (0-0.9); MONOCYTES % (AUTO) 5.9 % (2-12); NEUTROPHILS # (AUTO) 19.1 X10'3 (1.8-7.7); NEUTROPHILS % (AUTO) 89.3 % (42-75); PLATELET COUNT 277 X10'3 (140-440); RED BLOOD COUNT 4.13 X10'6 (4.70-6.10); RED CELL DISTRIBUTION WIDTH 15.6 % (11.5-14.5); WHITE BLOOD COUNT 21.4 X10'3 (4.5-11.0)
[2022-05-21 09:15] LABS: ALANINE AMINOTRANSFERASE 103 U/L (12-78); ALBUMIN 2.4 G/DL (3.4-5.0); ALBUMIN/GLOBULIN RATIO 0.6 (1.1-1.5); ALKALINE PHOSPHATASE 134 IU/L (46-116); ANION GAP 12 (8-16); ASPARTATE AMINO TRANSFERASE 33 U/L (10-37); BILIRUBIN,TOTAL 1.1 MG/DL (0.1-1.0); BLOOD UREA NITROGEN 12 MG/DL (7-18); BUN/CREATININE RATIO 17.4 (5.4-32.0); CALCIUM 7.7 MG/DL (8.5-10.1); CHLORIDE 103 MMOL/L (99-107); CREATININE 0.69 MG/DL (0.60-1.10); GLUCOSE 91 MG/DL (70-104); LIPASE 354 U/L (73-393); POTASSIUM 3.1 MMOL/L (3.5-5.1); SODIUM 138 MMOL/L (135-145); TOTAL CARBON DIOXIDE 23.3 MMOL/L (24-32); TOTAL PROTEIN 6.2 G/DL (6.4-8.2); VANCOMYCIN,TROUGH 7.6 UG/ML (6.0-14.0); eGFR > 90 ML/MIN
[2022-05-21] MEDS: piperacillin/tazo 3.375gm/50ml 50 ML IV SCH ×3 (09:46→23:28)
[2022-05-21] MEDS ORDERED: FLU VACC QS2022-23(6MOS UP)/PF 60 MCG/0.5 ML SYRINGE IMVAC ONE (10:00)
[2022-05-21] MEDS ORDERED: SINCALIDE IV ONE (10:15)
[2022-05-21] MEDS ORDERED: NORMAL SALINE IV ONE (10:15)
--- NOTE | 2022-05-21 11:18 | NUR ---
as clinical instructor, i reviewed nurse student charting
[2022-05-21] MEDS ORDERED: BUPIVAcaine 0.5% inj/PF 30 ML ONE (17:41)
--- NOTE | 2022-05-21 18:29 | NUR ---
Problems reprioritized. Patient report given, questions answered & plan of care reviewed with Patty GUPTA.
[2022-05-21] MEDS ORDERED: fentaNYL /PF 50mcg/ml 5ml ampule ONE (18:48)
[2022-05-21] MEDS ORDERED: midazolam 1 mg/ML 2ml injection ONE (18:48)
[2022-05-21] MEDS ORDERED: rocuronium 10mg/ml inj IV ONE ×2 (19:01→19:23)
[2022-05-21] MEDS ORDERED: ringers solution, lacted 1,000 ML IV SCH (19:05)
[2022-05-21] MEDS ORDERED: meperidine/PF 25mg/ml syringe IV PRN ×3 (19:05)
[2022-05-21] MEDS ORDERED: morphine 2 MG/ML inj. syringe IV PRN (19:05)
[2022-05-21] MEDS ORDERED: ondansetron/PF 4mg/2ml inj IV PRN ×2 (19:05→20:10)
[2022-05-21] MEDS ORDERED: morphine 4 MG/ML inj SYRINge IV PRN (19:05)
[2022-05-21] MEDS ORDERED: LIDOcaine 2% (20mg/ml) 5ml vial ONE (19:15)
[2022-05-21] MEDS ORDERED: propofol inj 20 ML IV ONE (19:15)
[2022-05-21] MEDS ORDERED: ondansetron/PF 4mg/2ml inj ONE ×2 (19:23→19:56)
[2022-05-21] MEDS ORDERED: HYDROcodone/acetaminophen 10/325mg tab PO PRN (20:10)
[2022-05-21] MEDS ORDERED: HYDROmorphone inj. 0.5 MG/0.5 ML DISP.SYRIN IV PRN (20:10)
[2022-05-21] MEDS ORDERED: naloxone 0.4 mg/ml inj IV PRN (20:10)
--- NOTE | 2022-05-21 20:15 | NUR ---
Received from OR via BED, accompanied by Anesthesiologist DR ESCOBAR and report given by Anesthesiologist AND CUTTING AND PRINTING MACHINE OPERATOR. PT VERY DROWSY, DENIES PAIN. ABDOMEN W/3 LAP SITES W/BANDAIDS AND 1 SMALL GAUGE DRSG BELOW UMBILICUS CDI. Addendum: 05/21/22 at 2036 by Yazmin Diaz RN Amended: Links added.
--- NOTE | 2022-05-21 21:35 | NUR ---
Report called to receiving nurse. PT IS COMFORTABLE, 650 MG TYLENOL GIVEN FOR CRUZ. Transferred via BED, NO Belongings, BLL, CALL LIGHT GIVEN, SIDE RAILS UP X 2, PT ORIENTED TO ROOM AND SAFETY, VERBALIZED NEED TO USE CALL LIGHT WITH ANY NEEDS. RECEIVING RN NOTIFIED OF PTS ARRIVAL. NURSES AID IN TO ATTACH PT TO VS MACHINE. Special Issues communicated to receiving nurse. YES. Addendum: 05/21/22 at 2147 by Yazmin Diaz RN Amended: Links added.
--- NOTE | 2022-05-21 22:00 | NUR ---
PT IN RECOVERY NO 2200 VITALS
[2022-05-21] MEDS ORDERED: magnesium 2GM in 50ml NS 50 ML IV PRN (23:35)
[2022-05-21] MEDS ORDERED: magnesium Cl slow-release 64mg tablet PO PRN (23:35)
[2022-05-21] MEDS ORDERED: potassium Cl 40MEQ/1/2NS 520ml 520 ML IV PRN (23:35)
[2022-05-21] MEDS ORDERED: potassium Cl 20 mEq SR tablet PO PRN ×2 (23:35)
[2022-05-21] MEDS ORDERED: magnesium 4gm in 100ml NS 100 ML IV PRN (23:35)
[2022-05-22] VITALS (10 sets, daily range): BP systolic 112–168; BP diastolic 66–109
[2022-05-22] MEDS: HYDROcodone/acetaminophen 10/325mg tab PO PRN ×4 (03:24→20:15)
[2022-05-22] MEDS: normal saline 1000ml 1,000 ML IV SCH ×3 (04:52→18:12)
--- NOTE | 2022-05-22 06:48 | NUR ---
Problems reprioritized. Patient report given, questions answered & plan of care reviewed with CANDY MEDINA.
[2022-05-22 07:03] LABS: BASOPHILS % (AUTO) 0.1 % (0-1); EOSINOPHILS % (AUTO) 0.1 % (0-6); HEMATOCRIT 34.4 % (42.0-52.0); HEMOGLOBIN 11.2 g/dl (14.0-17.9); LYMPHOCYTES # (AUTO) 0.9 X10'3 (1.1-4.8); LYMPHOCYTES % (AUTO) 4.4 % (21-51); MEAN CORPUSCULAR HEMOGLOBIN 28.1 PG (27.0-31.0); MEAN CORPUSCULAR HGB CONC 32.7 g/dL (33.0-36.5); MEAN PLATELET VOLUME 7.4 FL (7.4-10.4); MONOCYTES # (AUTO) 1.2 X10'3 (0-0.9); MONOCYTES % (AUTO) 5.6 % (2-12); NEUTROPHILS # (AUTO) 18.9 X10'3 (1.8-7.7); NEUTROPHILS % (AUTO) 89.8 % (42-75); PLATELET COUNT 293 X10'3 (140-440); RED CELL DISTRIBUTION WIDTH 15.3 % (11.5-14.5)
[2022-05-22] MEDS: piperacillin/tazo 3.375gm/50ml 50 ML IV SCH ×3 (07:22→21:15)
[2022-05-22] MEDS: heparin, porcine 5000 units/ml vial SQ SCH ×2 (07:23→20:17)
[2022-05-22] MEDS: lamoTRIgine 100mg tablet PO SCH (07:23)
[2022-05-22] MEDS: buPROPion SR 100mg tab PO SCH (07:23)
[2022-05-22] MEDS: lamoTRIgine 25mg tablet PO SCH (07:23)
[2022-05-22] MEDS: pantoprazole 40mg Tablet.DR PO SCH (07:24)
[2022-05-22] MEDS: atenolol 25mg tablet PO SCH (07:25)
[2022-05-22 07:48] LABS: ALANINE AMINOTRANSFERASE 77 U/L (12-78); ALBUMIN 2.1 G/DL (3.4-5.0); ALBUMIN/GLOBULIN RATIO 0.5 (1.1-1.5); ALKALINE PHOSPHATASE 129 IU/L (46-116); ASPARTATE AMINO TRANSFERASE 43 U/L (10-37); BILIRUBIN,TOTAL 0.7 MG/DL (0.1-1.0); BLOOD UREA NITROGEN 11 MG/DL (7-18); BUN/CREATININE RATIO 15.3 (5.4-32.0); CALCIUM 7.8 MG/DL (8.5-10.1); CREATININE 0.72 MG/DL (0.60-1.10); GLUCOSE 117 MG/DL (70-104); LIPASE 89 U/L (73-393); MAGNESIUM 2.6 MG/DL (1.5-2.4); TOTAL CARBON DIOXIDE 27.2 MMOL/L (24-32); TOTAL PROTEIN 6.3 G/DL (6.4-8.2); eGFR > 90 ML/MIN
[2022-05-22] MEDS: K and/or MAG REPLACEMENT MC SCH ×4 (08:00→20:00)
[2022-05-22 08:34] LABS: ANION GAP 6 (8-16); CHLORIDE 102 MMOL/L (99-107); POTASSIUM 3.6 MMOL/L (3.5-5.1); SODIUM 135 MMOL/L (135-145)
--- NOTE | 2022-05-22 12:37 | NUR ---
TAKEN TO OR
--- NOTE | 2022-05-22 22:23 | NUR ---
Student documentation: I have reviewed and agree interventions, assessments performed and documented by Estephanie BAUTISTA.Student Medication Administration: For this medication-pass time frame, all medication were reviewed, dispensed, administered and documented per hospital policy by Estephanie BAUTISTA.
[2022-05-23] MEDS: HYDROcodone/acetaminophen 10/325mg tab PO PRN ×3 (00:11→10:18)
[2022-05-23] MEDS: normal saline 1000ml 1,000 ML IV SCH ×2 (00:52→07:32)
[2022-05-23] MEDS: piperacillin/tazo 3.375gm/50ml 50 ML IV SCH (05:04)
--- NOTE | 2022-05-23 06:08 | NUR ---
Problems reprioritized. Patient report given, questions answered & plan of care reviewed with CANDY NOVAK.
--- NOTE | 2022-05-23 06:19 | NUR ---
Problems reprioritized. Patient report given, questions answered & plan of care reviewed with CANDY CASTRO.
[2022-05-23 06:54] LABS: BASOPHILS % (AUTO) 0.1 % (0-1); EOSINOPHILS % (AUTO) 0 % (0-6); HEMATOCRIT 35.3 % (42.0-52.0); HEMOGLOBIN 11.8 g/dl (14.0-17.9); LYMPHOCYTES # (AUTO) 1.3 X10'3 (1.1-4.8); LYMPHOCYTES % (AUTO) 5.5 % (21-51); MEAN CORPUSCULAR HEMOGLOBIN 28.5 PG (27.0-31.0); MEAN CORPUSCULAR HGB CONC 33.4 g/dL (33.0-36.5); MEAN CORPUSCULAR VOLUME 85.2 FL (78-98); MEAN PLATELET VOLUME 7.2 FL (7.4-10.4); MONOCYTES # (AUTO) 1.8 X10'3 (0-0.9); MONOCYTES % (AUTO) 7.7 % (2-12); NEUTROPHILS # (AUTO) 20.1 X10'3 (1.8-7.7); NEUTROPHILS % (AUTO) 86.7 % (42-75); PLATELET COUNT 344 X10'3 (140-440); RED BLOOD COUNT 4.14 X10'6 (4.70-6.10); RED CELL DISTRIBUTION WIDTH 15.3 % (11.5-14.5); WHITE BLOOD COUNT 23.1 X10'3 (4.5-11.0)
[2022-05-23 07:00] VITALS: BP 155/103
[2022-05-23 07:10] LABS: ALANINE AMINOTRANSFERASE 63 U/L (12-78); ALBUMIN 2.2 G/DL (3.4-5.0); ALBUMIN/GLOBULIN RATIO 0.6 (1.1-1.5); ALKALINE PHOSPHATASE 110 IU/L (46-116); ANION GAP 12 (8-16); ASPARTATE AMINO TRANSFERASE 44 U/L (10-37); BILIRUBIN,TOTAL 0.6 MG/DL (0.1-1.0); BLOOD UREA NITROGEN 9 MG/DL (7-18); BUN/CREATININE RATIO 13.2 (5.4-32.0); CALCIUM 7.6 MG/DL (8.5-10.1); CHLORIDE 97 MMOL/L (99-107); CREATININE 0.68 MG/DL (0.60-1.10); GLUCOSE 115 MG/DL (70-104); MAGNESIUM 1.9 MG/DL (1.5-2.4); SODIUM 132 MMOL/L (135-145); TOTAL CARBON DIOXIDE 23.3 MMOL/L (24-32); TOTAL PROTEIN 6.1 G/DL (6.4-8.2); eGFR > 90 ML/MIN
[2022-05-23 07:11] LABS: POTASSIUM 2.9 MMOL/L (3.5-5.1)
[2022-05-23] MEDS: buPROPion SR 100mg tab PO SCH (07:12)
[2022-05-23] MEDS: pantoprazole 40mg Tablet.DR PO SCH (07:12)
[2022-05-23] MEDS: acetaminophen 325mg tablet PO PRN (07:13)
[2022-05-23] MEDS: lamoTRIgine 100mg tablet PO SCH (07:13)
[2022-05-23] MEDS: heparin, porcine 5000 units/ml vial SQ SCH (07:14)
[2022-05-23] MEDS: atenolol 25mg tablet PO SCH (07:14)
[2022-05-23] MEDS: lamoTRIgine 25mg tablet PO SCH (07:14)
[2022-05-23] MEDS: K and/or MAG REPLACEMENT MC SCH ×2 (08:00)
[2022-05-23 11:00] VITALS: BP 119/68
--- NOTE | 2022-05-23 11:57 | NUR ---
Initial: Pt admit for acute pancreatitis secondary to cholelithiasis and transaminitis. Pt currently POD # 2 s/p laparoscopic cholecystectomy. Diet has been advanced from NPO to liquids to regulars and pt eating well, documented with mostly 100% PO intake. LBM 05/22. No nutrition intervention implemented at this time. Will continue to follow. Recommendations: 1) Continue regular diet; change to low fat diet if pt continues with abdominal pain and/or experiences diarrhea 2) Consider bowel care in view of PRN opioids; noted PRN Reglan available 3) Weekly scaled weights Addendum: 05/23/22 at [address] Amended: Links added.
--- NOTE | 2022-05-23 13:44 | NUR ---
PAGER ID: [phone] MESSAGE: BekahA Radha Nina: SILVIA.... patient says his parents are on their way and he will be leaving AMA when they get here. thank you! [phone]
--- NOTE | 2022-05-23 14:37 | NUR ---
Patient left AMA when his parents arrived to the floor. His mother and father escorted him out. IV removed, all belongings gathered from room. Gave the patient Dr. Faria's phone number so that he could call for a follow up appointment. aware. Addendum: 05/23/22 at 1450 by Manjula Roman RN Spoke with Dr. Vázquez, message left with Dr. Faria.
== END 2022-05-23 14:33 | disposition left against medical advice (07) | DRG 263 ==
LOC: ER 17:32 → ED HOLD 22:17 → SUR 3N 05-19 02:20
PROVIDERS: ADMIT Internal Medicine; ATTEND Family Medicine
PROC: BW211ZZ Computerized Tomography (CT Scan) of Abdomen and Pelvis using Low Osmolar Contrast (ICD-10-PCS; 2022-05-18)
PROC: BW211ZZ Computerized Tomography (CT Scan) of Abdomen and Pelvis using Low Osmolar Contrast (ICD-10-PCS; 2022-05-20)
PROC: 3E02340 Introduction of Influenza Vaccine into Muscle, Percutaneous Approach (ICD-10-PCS; 2022-05-21)
PROC: CF1C1ZZ Planar Nuclear Medicine Imaging of Hepatobiliary System, All using Technetium 99m (Tc-99m) (ICD-10-PCS; 2022-05-21)
PROC: 0FT44ZZ Resection of Gallbladder, Percutaneous Endoscopic Approach (ICD-10-PCS; principal; 2022-05-21 18:40)
DX: K80.00 Calculus of gallbladder with acute cholecystitis without obstruction (principal); K85.10 Biliary acute pancreatitis without necrosis or infection; R65.10 Systemic inflammatory response syndrome (SIRS) of non-infectious origin without acute organ dysfunction; R56.9 Unspecified convulsions; F12.90 Cannabis use, unspecified, uncomplicated; F31.9 Bipolar disorder, unspecified; E87.6 Hypokalemia; R74.01 Elevation of levels of liver transaminase levels; R79.89 Other specified abnormal findings of blood chemistry; I10 Essential (primary) hypertension; F41.9 Anxiety disorder, unspecified; I16.0 Hypertensive urgency; K82.8 Other specified diseases of gallbladder; Z53.29 Procedure and treatment not carried out because of patient's decision for other reasons; Z23 Encounter for immunization
CPT/HCPCS: 36415; 74177; 74181; 76700; 78227; 80053; 80202; 80305; 81001; 82948; 83605; 83690; 83735; 84145; 85007; 85025; 87040; 87081; 90686; 93005; 99285; A4215; A4615; A4618; A6258; A6449; A7000; A9537; G0378; J1644; J2250; J2270; J2405; J2543; J2704; J2805; J3010; J3370; J3490; J7030; J7120; Q9967; S0020

== ENCOUNTER 2022-07-04 10:13 | Inpatient (IN) | payer MEDICAID ==
[~2022-07-04] VITALS: Ht 190.5 cm; Wt 98.2 kg
[~2022-07-04 10:13] MED LIST changes: +CLON1TAB13 PO; +LAMO150T6 PO; +OMEP20CA16 PO
[2022-07-04 11:02] LABS: BASOPHILS # (AUTO) 0.1 X10'3 (0-0.2); BASOPHILS % (AUTO) 0.4 % (0-1); EOSINOPHILS % (AUTO) 0.1 % (0-6); HEMATOCRIT 25.1 % (42.0-52.0); LYMPHOCYTES % (AUTO) 7.8 % (21-51); MEAN CORPUSCULAR HGB CONC 31.7 g/dL (33.0-36.5); MEAN CORPUSCULAR VOLUME 85.1 FL (78-98); MEAN PLATELET VOLUME 6.3 FL (7.4-10.4); MONOCYTES # (AUTO) 1.6 X10'3 (0-0.9); MONOCYTES % (AUTO) 13.4 % (2-12); NEUTROPHILS # (AUTO) 9.5 X10'3 (1.8-7.7); NEUTROPHILS % (AUTO) 78.3 % (42-75); PLATELET COUNT 817 X10'3 (140-440); RED BLOOD COUNT 2.95 X10'6 (4.70-6.10); RED CELL DISTRIBUTION WIDTH 17.5 % (11.5-14.5); WHITE BLOOD COUNT 12.1 X10'3 (4.5-11.0)
[2022-07-04 11:19] LABS: COLOR,URINE YELLOW (Yellow); GLUCOSE, URINE NEGATIVE (Neg); KETONES,URINE TRACE mg/dl (Neg); LEUKOCYTE ESTERASE ,URINE NEGATIVE (Neg); NITRITES, URINE NEGATIVE (Neg); OCCULT BLOOD,URINE NEGATIVE (Neg); PH,URINE 5.5 (4.8-8.0); PROTEIN,URINE NEGATIVE (Neg); UROBILINOGEN,URINE 0.2 E.U/dL (0.2-1.0)
[2022-07-04 11:26] LABS: ALANINE AMINOTRANSFERASE 15 U/L (12-78); ALBUMIN 2.2 G/DL (3.4-5.0); ALBUMIN/GLOBULIN RATIO 0.5 (1.1-1.5); ALKALINE PHOSPHATASE 152 IU/L (46-116); ANION GAP 14 (8-16); ASPARTATE AMINO TRANSFERASE 13 U/L (10-37); BILIRUBIN,TOTAL 0.3 MG/DL (0.1-1.0); BLOOD UREA NITROGEN 9 MG/DL (7-18); BUN/CREATININE RATIO 8.9 (5.4-32.0); CALCIUM 8.5 MG/DL (8.5-10.1); CHLORIDE 100 MMOL/L (99-107); CREATININE 1.01 MG/DL (0.60-1.10); GLUCOSE 101 MG/DL (70-104); LIPASE 346 U/L (73-393); POTASSIUM 3.5 MMOL/L (3.5-5.1); SODIUM 136 MMOL/L (135-145); TOTAL CARBON DIOXIDE 22.2 MMOL/L (24-32); TOTAL PROTEIN 6.7 G/DL (6.4-8.2); eGFR 81 ML/MIN
[2022-07-04 11:27] LABS: NUCLEATED RED BLOOD CELLS 2 /100WBC (0-0); TOTAL CELLS COUNTED 100
[2022-07-04 11:28] LABS: GIANT PLATELET FEW; LARGE PLATELETS FEW; PLATELET ESTIMATE INCREASED
[2022-07-04 11:29] LABS: ANISOCYTOSIS 1+
--- NOTE | 2022-07-04 11:40 | NUR ---
Concur with general assesment performed by Julia BRADFORD.
[2022-07-04 11:45] LABS: UA COLLECTION TYPE CLN CATCH MIDSTREAM
[2022-07-04] MEDS ORDERED: ondansetron 4mg rapidly disintigrating tab PO ONE (11:45)
[2022-07-04] MEDS ORDERED: normal saline 1000ML IV soln IVB ONE (11:45)
[2022-07-04] MEDS ORDERED: HYDROcodone/acetaminophen 5mg/325mg tablet PO ONE (11:45)
[2022-07-04 11:46] LABS: CLARITY,URINE SLIGHTLY CLOUDY (Clear)
[2022-07-04 11:47] LABS: BACTERIA,URINE FEW /HPF (Neg); MUCUS STRANDS MANY /LPF (Neg); RBC,URINE NONE SEEN /HPF (0-2); SQUAMOUS EPITHELIAL CELL,UR FEW /LPF (FEW); WBC,URINE 0-4 /HPF (0-4)
[2022-07-04 13:13] LABS: OCCULT BLOOD STOOL POSITIVE (Neg)
[2022-07-04] MEDS ORDERED: normal saline 1000ml 1,000 ML IV ONE (13:15)
[2022-07-04] MEDS ORDERED: BUPR100T15 PO (13:41)
[2022-07-04] MEDS ORDERED: magnesium 4gm in 100ml NS 100 ML IV PRN (14:20)
[2022-07-04] MEDS ORDERED: magnesium Cl slow-release 64mg tablet PO PRN (14:20)
[2022-07-04] MEDS ORDERED: potassium Cl 40MEQ/1/2NS 520ml 520 ML IV PRN (14:20)
[2022-07-04] MEDS ORDERED: potassium Cl 20 mEq SR tablet PO PRN (14:20)
[2022-07-04] MEDS: normal saline 1000ml 1,000 ML IV SCH (14:47)
[2022-07-04] MEDS ORDERED: iohexol 300mg/ml 100ml inj. ONE (14:58)
[2022-07-04 15:01] LABS: MAGNESIUM 1.6 MG/DL (1.5-2.4)
[2022-07-04] MEDS ORDERED: CefTRIAXone/D5W-Rocephin 1gm 50 ML IV ONE (16:05)
[2022-07-04] MEDS ORDERED: metroNIDAZOLE-Flagyl 500mg/NS 100 ML IV ONE (16:05)
[2022-07-04] MEDS: morphine 2 MG/ML inj. syringe IV PRN (18:32)
[2022-07-04] MEDS ORDERED: diatr meglu/diatrizoate 30ml oral sol.-(3 dose) bottle PO SCH (19:40)
[2022-07-04] MEDS: K and/or MAG REPLACEMENT MC SCH (20:00)
[2022-07-04] MEDS: pantoprazole 40MG/NS 100ML BAG 100 ML IV SCH (20:40)
--- NOTE | 2022-07-04 20:55 | NUR ---
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
[2022-07-05] VITALS (9 sets, daily range): BP systolic 107–135; BP diastolic 63–92
[2022-07-05] MEDS: metroNIDAZOLE-Flagyl 500mg/NS 100 ML IV SCH ×3 (00:13→18:04)
[2022-07-05] MEDS: ondansetron/PF 4mg/2ml inj IV PRN ×3 (00:14→21:31)
[2022-07-05] MEDS: morphine 2 MG/ML inj. syringe IV PRN ×3 (00:14→21:32)
[2022-07-05] MEDS: normal saline 1000ml 1,000 ML IV SCH ×3 (00:26→20:48)
[2022-07-05 04:24] LABS: LYMPHOCYTES # (AUTO) 1.3 X10'3 (1.1-4.8)
[2022-07-05 04:26] LABS: BASOPHILS % (AUTO) 0.1 % (0-1); EOSINOPHILS % (AUTO) 0 % (0-6); MEAN CORPUSCULAR HEMOGLOBIN 28.1 PG (27.0-31.0); MEAN CORPUSCULAR HGB CONC 32.3 g/dL (33.0-36.5); MEAN PLATELET VOLUME 5.8 FL (7.4-10.4); MONOCYTES # (AUTO) 1.7 X10'3 (0-0.9); MONOCYTES % (AUTO) 9.3 % (2-12); NEUTROPHILS # (AUTO) 15.7 X10'3 (1.8-7.7); NEUTROPHILS % (AUTO) 83.6 % (42-75); PLATELET COUNT 601 X10'3 (140-440); RED BLOOD COUNT 2.42 X10'6 (4.70-6.10); RED CELL DISTRIBUTION WIDTH 18.5 % (11.5-14.5); WHITE BLOOD COUNT 18.8 X10'3 (4.5-11.0)
[2022-07-05] MEDS: acetaminophen 325mg tablet PO PRN ×2 (04:28→12:32)
--- NOTE | 2022-07-05 04:34 | NUR ---
PAGED HOSPITALIST DUE TO PATIENTS H/H WAITING FOR ORDERS ZULLY GUPTA CHARTED IN CRITICAL CARE INTERVENTION
[2022-07-05 04:36] LABS: HEMOGLOBIN 6.8 g/dl (14.0-17.9)
[2022-07-05 04:37] LABS: HEMATOCRIT 21.1 % (42.0-52.0)
[2022-07-05 04:38] LABS: ALANINE AMINOTRANSFERASE 11 U/L (12-78); ALBUMIN 1.8 G/DL (3.4-5.0); ALBUMIN/GLOBULIN RATIO 0.4 (1.1-1.5); ALKALINE PHOSPHATASE 134 IU/L (46-116); ANION GAP 12 (8-16); ASPARTATE AMINO TRANSFERASE 12 U/L (10-37); BILIRUBIN,TOTAL 0.2 MG/DL (0.1-1.0); BLOOD UREA NITROGEN 8 MG/DL (7-18); BUN/CREATININE RATIO 9.1 (5.4-32.0); CALCIUM 7.8 MG/DL (8.5-10.1); CHLORIDE 104 MMOL/L (99-107); CREATININE 0.88 MG/DL (0.60-1.10); GLUCOSE 112 MG/DL (70-104); MAGNESIUM 1.6 MG/DL (1.5-2.4); POTASSIUM 3.7 MMOL/L (3.5-5.1); SODIUM 139 MMOL/L (135-145); TOTAL CARBON DIOXIDE 23.2 MMOL/L (24-32); eGFR > 90 ML/MIN
--- NOTE | 2022-07-05 05:33 | NUR ---
waiting for hospitalist to consent patient to blood transfusion blood is ready
--- NOTE | 2022-07-05 06:03 | NUR ---
PAGED HOSPITALIST CALLED BACK STATED " I WILL BE DOWN FOR PATIENT IN A BIT." TO HAVE ELECTRONIC CONSENT FOR BLOOD PRODUCTS
[2022-07-05] MEDS: K and/or MAG REPLACEMENT MC SCH ×2 (08:00→20:00)
[2022-07-05] MEDS: pantoprazole 40MG/NS 100ML BAG 100 ML IV SCH ×2 (09:09→20:48)
[2022-07-05] MEDS: CefTRIAXone/D5W-Rocephin 1gm 50 ML IV SCH (10:12)
--- NOTE | 2022-07-05 13:00 | NUR ---
VO FROM DR. WILSON TO HAVE H&H DRAWN POST TRANSFUSION.
[2022-07-05 15:17] LABS: HEMATOCRIT 29.1 % (42.0-52.0); HEMOGLOBIN 9.1 g/dl (14.0-17.9); MEAN CORPUSCULAR HEMOGLOBIN 26.6 PG (27.0-31.0); MEAN CORPUSCULAR HGB CONC 31.4 g/dL (33.0-36.5); MEAN CORPUSCULAR VOLUME 84.8 FL (78-98); MEAN PLATELET VOLUME 6.1 FL (7.4-10.4); PLATELET COUNT 662 X10'3 (140-440); RED BLOOD COUNT 3.43 X10'6 (4.70-6.10); RED CELL DISTRIBUTION WIDTH 16.9 % (11.5-14.5); WHITE BLOOD COUNT 20.8 X10'3 (4.5-11.0)
--- NOTE | 2022-07-05 20:45 | NUR ---
I agree with A Asher Burnett assessment.
[2022-07-06] MEDS: metroNIDAZOLE-Flagyl 500mg/NS 100 ML IV SCH ×4 (00:40→23:44)
[2022-07-06 04:36] LABS: BASOPHILS # (AUTO) 0.1 X10'3 (0-0.2); BASOPHILS % (AUTO) 0.4 % (0-1); EOSINOPHILS % (AUTO) 0.2 % (0-6); HEMATOCRIT 27.1 % (42.0-52.0); HEMOGLOBIN 8.7 g/dl (14.0-17.9); LYMPHOCYTES # (AUTO) 1.9 X10'3 (1.1-4.8); LYMPHOCYTES % (AUTO) 11.9 % (21-51); MEAN CORPUSCULAR HEMOGLOBIN 27.5 PG (27.0-31.0); MEAN CORPUSCULAR HGB CONC 32.2 g/dL (33.0-36.5); MEAN CORPUSCULAR VOLUME 85.6 FL (78-98); MEAN PLATELET VOLUME 6.1 FL (7.4-10.4); MONOCYTES # (AUTO) 1.5 X10'3 (0-0.9); MONOCYTES % (AUTO) 9.5 % (2-12); NEUTROPHILS # (AUTO) 12.2 X10'3 (1.8-7.7); PLATELET COUNT 587 X10'3 (140-440); RED BLOOD COUNT 3.17 X10'6 (4.70-6.10); WHITE BLOOD COUNT 15.7 X10'3 (4.5-11.0)
[2022-07-06 04:46] LABS: ALBUMIN 1.8 G/DL (3.4-5.0); ANION GAP 11 (8-16); BLOOD UREA NITROGEN 8 MG/DL (7-18); BUN/CREATININE RATIO 10.3 (5.4-32.0); CALCIUM 8.1 MG/DL (8.5-10.1); CHLORIDE 103 MMOL/L (99-107); CREATININE 0.78 MG/DL (0.60-1.10); GLUCOSE 86 MG/DL (70-104); MAGNESIUM 1.9 MG/DL (1.5-2.4); POTASSIUM 3.1 MMOL/L (3.5-5.1); SODIUM 138 MMOL/L (135-145); TOTAL CARBON DIOXIDE 24.1 MMOL/L (24-32); eGFR > 90 ML/MIN
[2022-07-06] MEDS: morphine 2 MG/ML inj. syringe IV PRN ×3 (05:57→21:13)
[2022-07-06] MEDS: normal saline 1000ml 1,000 ML IV SCH ×3 (06:20→19:47)
[2022-07-06] MEDS: K and/or MAG REPLACEMENT MC SCH ×2 (08:13→20:00)
[2022-07-06] MEDS: pantoprazole 40MG/NS 100ML BAG 100 ML IV SCH ×2 (09:21→21:12)
[2022-07-06] MEDS: CefTRIAXone/D5W-Rocephin 1gm 50 ML IV SCH (09:47)
[2022-07-06] MEDS: ondansetron/PF 4mg/2ml inj IV PRN (10:58)
--- NOTE | 2022-07-06 16:43 | NUR ---
RN gave nurse report to CANDY Baez. Pt stable. VS WNL.
--- NOTE | 2022-07-06 17:21 | NUR ---
Pt reports being hungry. Has been NPO for days. BS is 95. Still waiting on bed placement at [facility] for transfer. RN paged Dr. Benjamin, updating on pt's condition and requesting temporary diet if appropriate. RN updated MD of pt's bed change: pt transferred to U 3019 A. RN updated receiving RN as well.
[2022-07-06 18:00] VITALS: BP 115/66
--- NOTE | 2022-07-06 18:00 | NUR ---
Patient in room PCU 3019. I have received report from Destinee GUPTA and had the opportunity to ask questions and assume patient care.
[2022-07-06] MEDS: potassium Cl 20 mEq SR tablet PO PRN (21:12)
[2022-07-06 22:00] VITALS: BP 110/68
--- NOTE | 2022-07-06 23:18 | NUR ---
stored all pt meds from home in the pharmacy.
--- NOTE | 2022-07-06 23:31 | NUR ---
paged Dr. Mancia for Elijah Nina C/O headache; May we please have an order for Tylenol? Thank you Rina Binu [phone]
[2022-07-06] MEDS ORDERED: acetaminophen 325mg tablet PO PRN (23:40)
[2022-07-07 02:00] VITALS: BP 128/78
[2022-07-07] MEDS: ondansetron/PF 4mg/2ml inj IV PRN ×2 (04:37→18:57)
[2022-07-07] MEDS: morphine 2 MG/ML inj. syringe IV PRN ×2 (04:38→18:57)
[2022-07-07] MEDS: potassium Cl 20 mEq SR tablet PO PRN ×2 (04:38→09:11)
[2022-07-07 07:00] VITALS: BP 137/81
--- NOTE | 2022-07-07 07:03 | NUR ---
Problems reprioritized. Patient report given, questions answered & plan of care reviewed with Destinee GUPTA.
[2022-07-07 07:10] LABS: EOSINOPHILS # (AUTO) 0.1 X10'3 (0-0.9); LYMPHOCYTES # (AUTO) 1.6 X10'3 (1.1-4.8); MEAN CORPUSCULAR HGB CONC 32.4 g/dL (33.0-36.5); MONOCYTES % (AUTO) 8.4 % (2-12); NEUTROPHILS # (AUTO) 8.8 X10'3 (1.8-7.7); WHITE BLOOD COUNT 11.5 X10'3 (4.5-11.0)
[2022-07-07 07:13] LABS: BASOPHILS % (AUTO) 0.4 % (0-1); EOSINOPHILS % (AUTO) 0.8 % (0-6); HEMATOCRIT 26.9 % (42.0-52.0); HEMOGLOBIN 8.7 g/dl (14.0-17.9); LYMPHOCYTES % (AUTO) 13.5 % (21-51); MEAN CORPUSCULAR HEMOGLOBIN 27.6 PG (27.0-31.0); MEAN CORPUSCULAR VOLUME 85.1 FL (78-98); MEAN PLATELET VOLUME 6.2 FL (7.4-10.4); NEUTROPHILS % (AUTO) 76.9 % (42-75); PLATELET COUNT 591 X10'3 (140-440); RED BLOOD COUNT 3.16 X10'6 (4.70-6.10)
[2022-07-07 07:22] LABS: ALBUMIN 1.8 G/DL (3.4-5.0); ANION GAP 15 (8-16); BLOOD UREA NITROGEN 5 MG/DL (7-18); BUN/CREATININE RATIO 9.4 (5.4-32.0); CALCIUM 7.8 MG/DL (8.5-10.1); CHLORIDE 102 MMOL/L (99-107); CREATININE 0.53 MG/DL (0.60-1.10); GLUCOSE 76 MG/DL (70-104); MAGNESIUM 1.8 MG/DL (1.5-2.4); POTASSIUM 3.3 MMOL/L (3.5-5.1); SODIUM 137 MMOL/L (135-145); TOTAL CARBON DIOXIDE 20.3 MMOL/L (24-32); eGFR > 90 ML/MIN
[2022-07-07] MEDS: K and/or MAG REPLACEMENT MC SCH ×2 (08:00→20:00)
[2022-07-07 08:01] LABS: TOTAL CELLS COUNTED 100
[2022-07-07 08:02] LABS: ANISOCYTOSIS 1+; MICROCYTOSIS 1+; PLATELET ESTIMATE INCREASED
[2022-07-07] MEDS: metroNIDAZOLE-Flagyl 500mg/NS 100 ML IV SCH ×2 (08:56→16:00)
[2022-07-07] MEDS: CefTRIAXone/D5W-Rocephin 1gm 50 ML IV SCH (08:56)
[2022-07-07] MEDS: pantoprazole 40MG/NS 100ML BAG 100 ML IV SCH ×2 (08:56→21:06)
[2022-07-07] MEDS: acetaminophen 325mg tablet PO PRN (09:11)
[2022-07-07] MEDS: dextrose 5%-normal saline 1,000 ML IV SCH (09:12)
--- NOTE | 2022-07-07 10:19 | NUR ---
"DR. NEWELL, PT [facility], ROOM 3019, VERY AGITATED AND ASKING TO RE-START HIS PSYCH/ANXIETY MEDS. THANKS TROY PCU"
[2022-07-07] MEDS: buPROPion SR 100mg tab PO SCH (10:42)
[2022-07-07] MEDS: clonazePAM 1mg tablet PO PRN (10:42)
--- NOTE | 2022-07-07 12:31 | NUR ---
"DR. NEWELL, I MISSED WHEN YOU SAW PT [facility], ROOM 3019. DO YOU THINK WE MAY START HIM ON CLEAR LIQUIDS? THANKS FATOU SIMMONS"
[2022-07-07] MEDS: lamoTRIgine 100mg tablet PO SCH (12:32)
[2022-07-07 13:00] VITALS: BP 135/78
[2022-07-07 18:00] VITALS: BP 132/75
--- NOTE | 2022-07-07 18:00 | NUR ---
Patient in room PCU 3019. I have received report from Destinee GUPTA and had the opportunity to ask questions and assume patient care.
--- NOTE | 2022-07-07 21:19 | NUR ---
PAGED DR. ZAMARRIPA FOR KEV BELLA. TO RENEW THE HYPOKALEMIA PROTOCOL FOR THIS PT.
[2022-07-07 22:00] VITALS: BP 129/73
[2022-07-07] MEDS ORDERED: potassium Cl 20 mEq SR tablet PO PRN (22:15)
[2022-07-07] MEDS ORDERED: potassium Cl 40MEQ/1/2NS 520ml 520 ML IV PRN ×2 (22:15)
[2022-07-08] MEDS: morphine 2 MG/ML inj. syringe IV PRN ×3 (00:12→14:27)
[2022-07-08] MEDS: metroNIDAZOLE-Flagyl 500mg/NS 100 ML IV SCH ×2 (00:13→07:38)
[2022-07-08] MEDS: dextrose 5%-normal saline 1,000 ML IV SCH ×2 (01:01→11:49)
[2022-07-08] MEDS: ondansetron/PF 4mg/2ml inj IV PRN ×3 (01:01→14:27)
[2022-07-08 02:00] VITALS: BP 132/73
[2022-07-08 07:00] VITALS: BP 136/92
--- NOTE | 2022-07-08 07:06 | NUR ---
Problems reprioritized. Patient report given, questions answered & plan of care reviewed with Destinee GUPTA.
[2022-07-08] MEDS: buPROPion SR 100mg tab PO SCH (07:36)
[2022-07-08] MEDS: lamoTRIgine 100mg tablet PO SCH (07:37)
[2022-07-08] MEDS: clonazePAM 1mg tablet PO PRN (07:37)
[2022-07-08] MEDS: pantoprazole 40MG/NS 100ML BAG 100 ML IV SCH (07:38)
[2022-07-08] MEDS: CefTRIAXone/D5W-Rocephin 1gm 50 ML IV SCH (08:00)
[2022-07-08] MEDS: K and/or MAG REPLACEMENT MC SCH (08:00)
[2022-07-08] MEDS ORDERED: K and/or MAG REPLACEMENT MC SCH (08:00)
[2022-07-08 08:39] LABS: EOSINOPHILS # (AUTO) 0.1 X10'3 (0-0.9); HEMOGLOBIN 9.1 g/dl (14.0-17.9); MONOCYTES # (AUTO) 0.9 X10'3 (0-0.9)
[2022-07-08 08:41] LABS: BASOPHILS % (AUTO) 0.5 % (0-1); EOSINOPHILS % (AUTO) 1.5 % (0-6); HEMATOCRIT 27.6 % (42.0-52.0); LYMPHOCYTES # (AUTO) 1.5 X10'3 (1.1-4.8); LYMPHOCYTES % (AUTO) 18.5 % (21-51); MEAN CORPUSCULAR HEMOGLOBIN 27.6 PG (27.0-31.0); MEAN CORPUSCULAR HGB CONC 32.9 g/dL (33.0-36.5); MEAN CORPUSCULAR VOLUME 83.9 FL (78-98); MEAN PLATELET VOLUME 6.3 FL (7.4-10.4); MONOCYTES % (AUTO) 10.4 % (2-12); NEUTROPHILS # (AUTO) 5.8 X10'3 (1.8-7.7); NEUTROPHILS % (AUTO) 69.1 % (42-75); PLATELET COUNT 629 X10'3 (140-440); RED BLOOD COUNT 3.28 X10'6 (4.70-6.10); RED CELL DISTRIBUTION WIDTH 16.9 % (11.5-14.5); WHITE BLOOD COUNT 8.3 X10'3 (4.5-11.0)
[2022-07-08 08:48] LABS: ALBUMIN 1.8 G/DL (3.4-5.0); ANION GAP 11 (8-16); BLOOD UREA NITROGEN 1 MG/DL (7-18); BUN/CREATININE RATIO 1.4 (5.4-32.0); CALCIUM 7.7 MG/DL (8.5-10.1); CHLORIDE 101 MMOL/L (99-107); GLUCOSE 93 MG/DL (70-104); MAGNESIUM 1.8 MG/DL (1.5-2.4); SODIUM 138 MMOL/L (135-145); TOTAL CARBON DIOXIDE 25.7 MMOL/L (24-32); eGFR > 90 ML/MIN
[2022-07-08 08:54] LABS: POTASSIUM 2.9 MMOL/L (3.5-5.1)
[2022-07-08] MEDS: potassium Cl 20 mEq SR tablet PO PRN ×2 (09:09→12:29)
--- NOTE | 2022-07-08 09:38 | NUR ---
"DR. NEWELL, PT [facility] K 2.9. REPLACED PER PROTOCOL. THANKS FATOU SIMMONS"
[2022-07-08 13:34] LABS: PLATELET ESTIMATE INCREASED; TOTAL CELLS COUNTED 100
[2022-07-08 13:35] LABS: ANISOCYTOSIS 1+; HYPOCHROMASIA 1+; POLYCHROMASIA 1+
[2022-07-08 14:00] VITALS: BP 132/78
--- NOTE | 2022-07-08 18:12 | NUR ---
CALLED ACCEPTING HOSPITAL AND GAVE REPORT TP TEE HORNER RN
== END 2022-07-08 17:27 | disposition short-term general hospital (02) | DRG 720 ==
LOC: ER 10:13 → ED HOLD 14:36 → UNDOADMIN 14:36 → PCU 3S 07-06 17:20
PROVIDERS: ADMIT Internal Medicine; ATTEND Internal Medicine
PROC: BW251ZZ Computerized Tomography (CT Scan) of Chest, Abdomen and Pelvis using Low Osmolar Contrast (ICD-10-PCS; principal; 2022-07-04)
PROC: 30233N1 Transfusion of Nonautologous Red Blood Cells into Peripheral Vein, Percutaneous Approach (ICD-10-PCS; 2022-07-05)
DX: A41.9 Sepsis, unspecified organism (principal); K85.90 Acute pancreatitis without necrosis or infection, unspecified; D62 Acute posthemorrhagic anemia; K92.2 Gastrointestinal hemorrhage, unspecified; Z20.822 Contact with and (suspected) exposure to COVID-19; E87.6 Hypokalemia; F31.9 Bipolar disorder, unspecified; Z90.49 Acquired absence of other specified parts of digestive tract
CPT/HCPCS: 36415; 36430; 71045; 71260; 74177; 80048; 80053; 81001; 82272; 82948; 83605; 83690; 83735; 84145; 85007; 85025; 85027; 86885; 86900; 86901; 86920; 87040; 87502; 87503; 87635; 87811; 93005; 99285; A6258; A6402; C2617; C9113; C9803; G0378; J0696; J2270; J2405; J3480; J3490; J7030; J7042; J7070; P9016; Q9967

== ENCOUNTER 2022-07-29 12:12 | Emergency (ER) | payer MEDICAID ==
[~2022-07-29] VITALS: Ht 190.5 cm; Wt 100.5 kg
[~2022-07-29 12:12] MED LIST changes: -BUPR-113 PO; +BUPR100T15 PO
[2022-07-29] MEDS ORDERED: OXYC5CAP19 PO (14:05)
[2022-07-29 14:15] VITALS: BP 130/92
== END 2022-07-29 14:17 | disposition home or self-care (01) ==
LOC: ER 12:12
DX: J90 Pleural effusion, not elsewhere classified (principal); F41.9 Anxiety disorder, unspecified; F31.9 Bipolar disorder, unspecified; F12.90 Cannabis use, unspecified, uncomplicated; Z98.890 Other specified postprocedural states; Z72.89 Other problems related to lifestyle; Z79.899 Other long term (current) drug therapy
CPT/HCPCS: 71046; 71250; 99284

== ENCOUNTER 2022-08-02 13:30 | Emergency (ER) | payer MEDICAID ==
[~2022-08-02] VITALS: Ht 190.5 cm; Wt 98.0 kg
[~2022-08-02 13:30] MED LIST changes: +OXYC-481 PO; +OXYC5CAP19 PO
[2022-08-02 14:02] LABS: BASOPHILS # (AUTO) 0.1 X10'3 (0-0.2); BASOPHILS % (AUTO) 0.5 % (0-1); EOSINOPHILS # (AUTO) 0.1 X10'3 (0-0.9); EOSINOPHILS % (AUTO) 0.4 % (0-6); HEMATOCRIT 36.7 % (42.0-52.0); HEMOGLOBIN 11.8 g/dl (14.0-17.9); LYMPHOCYTES # (AUTO) 1.2 X10'3 (1.1-4.8); LYMPHOCYTES % (AUTO) 9.1 % (21-51); MEAN CORPUSCULAR HEMOGLOBIN 27.3 PG (27.0-31.0); MEAN CORPUSCULAR VOLUME 85.4 FL (78-98); MEAN PLATELET VOLUME 7.2 FL (7.4-10.4); MONOCYTES # (AUTO) 0.8 X10'3 (0-0.9); MONOCYTES % (AUTO) 5.7 % (2-12); NEUTROPHILS # (AUTO) 11.4 X10'3 (1.8-7.7); NEUTROPHILS % (AUTO) 84.3 % (42-75); PLATELET COUNT 365 X10'3 (140-440); RED CELL DISTRIBUTION WIDTH 18.2 % (11.5-14.5); WHITE BLOOD COUNT 13.5 X10'3 (4.5-11.0)
[2022-08-02 14:17] LABS: ALANINE AMINOTRANSFERASE 30 U/L (12-78); ALBUMIN 3.7 G/DL (3.4-5.0); ALBUMIN/GLOBULIN RATIO 0.8 (1.1-1.5); ALKALINE PHOSPHATASE 125 IU/L (46-116); ANION GAP 11 (8-16); ASPARTATE AMINO TRANSFERASE 20 U/L (10-37); BILIRUBIN,TOTAL 0.6 MG/DL (0.1-1.0); BLOOD UREA NITROGEN 8 MG/DL (7-18); BUN/CREATININE RATIO 11.3 (5.4-32.0); CALCIUM 9.3 MG/DL (8.5-10.1); CHLORIDE 103 MMOL/L (99-107); CREATININE 0.71 MG/DL (0.60-1.10); GLUCOSE 114 MG/DL (70-104); LIPASE 751 U/L (73-393); POTASSIUM 3.4 MMOL/L (3.5-5.1); SODIUM 137 MMOL/L (135-145); TOTAL CARBON DIOXIDE 23.1 MMOL/L (24-32); TOTAL PROTEIN 8.2 G/DL (6.4-8.2); eGFR > 90 ML/MIN
[2022-08-02 15:00] LABS: CLARITY,URINE SLIGHTLY CLOUDY (Clear); COLOR,URINE YELLOW (Yellow); GLUCOSE, URINE NEGATIVE (Neg); KETONES,URINE NEGATIVE (Neg); LEUKOCYTE ESTERASE ,URINE NEGATIVE (Neg); NITRITES, URINE NEGATIVE (Neg); OCCULT BLOOD,URINE NEGATIVE (Neg); PROTEIN,URINE 30 mg/dl (Neg); UROBILINOGEN,URINE 0.2 E.U/dL (0.2-1.0)
[2022-08-02 15:04] LABS: UA COLLECTION TYPE CLN CATCH MIDSTREAM
[2022-08-02 15:06] LABS: MUCUS STRANDS MANY /LPF (Neg); SQUAMOUS EPITHELIAL CELL,UR FEW /LPF (FEW)
[2022-08-02 15:07] LABS: BACTERIA,URINE 1+ /HPF (Neg); RBC,URINE 0-2 /HPF (0-2)
[2022-08-02 15:08] LABS: WBC CLUMPS,URINE FEW /HPF (NEGATIVE)
--- NOTE | 2022-08-02 15:17 | NUR ---
Dylan sent back to lobby per studio operations engineer in charge Debbie. No exam rooms available in Main ED area.
[2022-08-02] MEDS ORDERED: metoclopramide 5 mg/ml inj IV ONE (16:30)
[2022-08-02] MEDS ORDERED: normal saline 1000ML IV soln IVB ONE (16:30)
[2022-08-02] MEDS ORDERED: famotidine/PF 10 mg/ml inj IV ONE (16:30)
[2022-08-02] MEDS ORDERED: potassium Cl 20 mEq SR tablet PO STA ×2 (18:13→20:41)
[2022-08-02 22:35] VITALS: BP 131/76
== END 2022-08-02 22:38 | disposition home or self-care (01) ==
LOC: ER 13:31
DX: R11.2 Nausea with vomiting, unspecified (principal); R10.9 Unspecified abdominal pain; E86.0 Dehydration; K86.0 Alcohol-induced chronic pancreatitis; F31.9 Bipolar disorder, unspecified; F12.10 Cannabis abuse, uncomplicated; Z79.899 Other long term (current) drug therapy
CPT/HCPCS: 36415; 80053; 81001; 83690; 85025; 87088; 96361; 96374; 96375; 99284; J2765; J3490; J7030